=== PATIENT | female | born 1955 | race Caucasian/White ===

== ENCOUNTER → 2017-04-07 | Outpatient (CLI) | payer MEDICARE, MEDICAID ==
[~2017-04-07] MED LIST: ALBU2.5V52 INH; BUDE6HFA IH; DOXY100C2 PO; GABA-488 PO; HYDR-3857 PO; LVT.15T PO; NAPR-689 PO; PNT40TEC PO; PRED20TA PO; SERT100T8 PO; SIMV20TA3 PO; [UNRECOGNIZED DRUG - OTHER]
--- NOTE | 2017-04-07 15:17 | Diagnostic Imaging Report ---
PROCEDURE: CT chest without contrast. TECHNIQUE: Multiple contiguous axial images were obtained through the chest without the use of intravenous contrast. INDICATION: Dyspnea. Followup lung nodule. COPD. COMPARISON: 03/23/2016. FINDINGS: Cardiomediastinal structures show normal heart size. There is no large pericardial effusion. No pathologically enlarged or morphologically abnormal adenopathy is seen within the mediastinum, helga, nor axillae. Evaluation of the lung ramos demonstrates diffuse air trapping consistent with background of COPD. Multiple benign calcified granulomata are noted within the left upper lobe. No other suspicious nodules or masses are identified. There is no focal consolidation, pleural effusion, nor pneumothorax. Bony structures show no acute abnormalities. Included portions of the upper abdomen show bilateral nonobstructive renal calculi. IMPRESSION: 1. Multiple benign-appearing calcified micronodules within the left upper lobe consistent with granulomatous disease. 2. No suspicious pulmonary nodule or mass. 3. COPD. Dictated by: Dictated on workstation # [id number]
== END ==
LOC: RAD 14:30
PROVIDERS: ATTEND Nurse Practitioner Family
DX: J44.9 Chronic obstructive pulmonary disease, unspecified (principal); R91.8 Other nonspecific abnormal finding of lung field; R06.00 Dyspnea, unspecified; G47.34 Idiopathic sleep related nonobstructive alveolar hypoventilation; F17.200 Nicotine dependence, unspecified, uncomplicated
CPT/HCPCS: 71250

== ENCOUNTER 2017-06-15 11:01 | Emergency (ER) | payer MEDICARE, MEDICAID ==
[~2017-06-15] VITALS: Ht 157.5 cm; Wt 72.1 kg
--- OUTSIDE RECORDS SUMMARY | 2017-06-15 11:06 | XMS REPORT ---
Author Author RODRICK FLORES 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 Active 119075085 Problem Hypertension I10 Active 25103274 Problem Hyperlipidemia, mixed E78.2 Active 658860700 Problem SLE (systemic lupus erythematosus related syndrome) M32.9 Active 358372354 Problem PTSD (post-traumatic stress disorder) F43.10 Active 68558539 Problem Hyperlipemia, mixed E78.2 Active 515508920 Problem Chronic obstructive pulmonary disease, unspecified COPD type J44.9 Active 68851016 ALLERGIES Unknown Allergies SOCIAL HISTORY No smoking Hx information available PLAN OF CARE VITAL SIGNS MEDICATIONS Medication Instructions Dosage Frequency Start Date End Date Duration Status [place] 7.5-325 MG Orally 3 times a day 1 tablet 8h Nov, Active RESULTS No Results PROCEDURES No Known procedures IMMUNIZATIONS No Known Immunizations
--- OUTSIDE RECORDS SUMMARY | 2017-06-15 11:06 | XMS REPORT ---
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 845340620 Assessment Facial cellulitis L03.211 January, Active 028385924 Problem Hypertension I10 Active 53970891 Problem Hyperlipidemia, mixed E78.2 Active 891733670 Problem SLE (systemic lupus erythematosus related syndrome) M32.9 Active 679546078 Problem PTSD (post-traumatic stress disorder) F43.10 Active 77575878 Problem Hyperlipemia, mixed E78.2 Active 537003073 Problem Chronic obstructive pulmonary disease, unspecified COPD type J44.9 Active 34017843 ALLERGIES Substance Reaction Event Type Date Status Percocet Unknown Drug Allergy January, Active Keflex Unknown Drug Allergy January, Active Surgical Tape Unknown Non Drug Allergy January, Active SOCIAL HISTORY No smoking Hx information available PLAN OF CARE VITAL SIGNS Height 63 in 2016-02-17 Weight 153.0 lbs 2016-02-17 Heart Rate 88 bpm 2016-02-17 Respiratory Rate 20 2016-02-17 BMI 27.10 kg/m2 2016-02-17 Blood pressure systolic 129 mmHg 2016-02-17 Blood pressure diastolic 81 mmHg 2016-02-17 MEDICATIONS Medication Instructions Dosage Frequency Start Date End Date Duration Status Naproxen 500 MG 1 tab 12h Nov, 30 Active Zoloft 100 MG Orally Once a day 1 tablet 24h Active Bactrim DS 800-160 MG Orally Twice a day 1 tablet 12h January, Feb, 10 day(s) Active Hydroxychloroquine Sulfate 200 MG Orally Once a day 1 tablet 24h 30 Active Spiriva HandiHaler 18 MCG Inhalation Once a day 1 capsule 24h Mar, Active Vitamin D3 1000 UNIT Orally Once a day 1 capsule 24h Active Levothyroxine Sodium 150 MCG Orally Once a day 1 tablet 24h Active Pantoprazole Sodium 40 MG Orally Once a day 1 tablet 24h Active Gabapentin 300 MG Orally Three times a day 1 capsule 8h Active [place] 7.5-325 MG 1 tablet 8h Nov, Active Simvastatin 20 MG Orally Once a day 1 tablet in the evening 24h 30 Active Hospital Bed as directed May, Active Ipratropium-Albuterol 0.5-2.5 (3) MG/3ML Inhalation Four times a day 3 ml as needed 6h Active RESULTS Name Result Date Reference Range CULTURE, ANAEROBIC 2016-02-17 Anaerobic Culture Final report Result 1 CULTURE, AEROBIC 2016-02-17 Aerobic Bacterial Culture Final report Result 1 Antimicrobial Susceptibility Written Authorization 2016-02-17 Written Authorization PROCEDURES Procedure Date Ordered Related Diagnosis Body Site LAB NOT BILLED BY [facility] February 17, 2016 [facility] VISIT ESTABLISHED PATIENT February 17, 2016 Office Visit, Est Pt., Level 3 February 17, 2016 IMMUNIZATIONS No Known Immunizations
--- OUTSIDE RECORDS SUMMARY | 2017-06-15 11:06 | XMS REPORT ---
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
--- OUTSIDE RECORDS SUMMARY | 2017-06-15 11:06 | XMS REPORT ---
Author Author MARTA NI [facility] Address [address] [place] [address] Care Team Providers Care Skin Lifter Bacon Name Role Phone MARTA NI Unavailable PROBLEMS Type Condition ICD9-CM Code HND61-XA Code Onset Dates Condition Status SNOMED Code Problem Hypertension I10 Active 33147699 Problem Primary insomnia F51.01 Active 3874651 Problem Hyperlipidemia, mixed E78.2 Active 465854864 Problem Other emphysema J43.8 Active 72303315 Problem Polyneuropathy G62.9 Active 10730330 Problem Acquired hypothyroidism E03.9 Active 947732927 Problem Chronic fatigue R53.82 Active 83686663 Problem Unequal leg length M21.70 Active 80106175 Problem Neuropathy G62.9 Active 783028870 Problem SLE (systemic lupus erythematosus related syndrome) M32.9 Active 786985634 Problem Chronic obstructive pulmonary disease, unspecified COPD type J44.9 Active 63114463 Problem Hyperlipemia, mixed E78.2 Active 973503487 Problem 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 Active 788820321 Problem PTSD (post-traumatic stress disorder) F43.10 Active 94216555 ALLERGIES Substance Reaction Event Type Date Status Percocet Unknown Drug Allergy Sep, Active Keflex Unknown Drug Allergy Sep, Active Surgical Tape Unknown Non Drug Allergy Sep, Active SOCIAL HISTORY No smoking Hx information available PLAN OF CARE Activity Details Follow Up 1 Year [facility], PCP Shaggy at nml intervals Reason: VITAL SIGNS Height 63 in 2016-10-06 Weight 153.0 lbs 2016-10-06 Temperature 97.0 degrees Fahrenheit 2016-10-06 Heart Rate 18 bpm 2016-10-06 Respiratory Rate 20 2016-10-06 BMI 27.10 kg/m2 2016-10-06 Blood pressure systolic 120 mmHg 2016-10-06 Blood pressure diastolic 76 mmHg 2016-10-06 MEDICATIONS Medication Instructions Dosage Frequency Start Date End Date Duration Status Pantoprazole Sodium 40 MG Orally Once a day 1 tablet 24h 30 Active Hydroxychloroquine Sulfate 200 MG Orally Once a day 1 tablet 24h 30 Active Imitrex 100 MG Orally Once a day 1 tablet as needed 24h Apr, Active Ipratropium-Albuterol 0.5-2.5 (3) MG/3ML Inhalation Four times a day 3 ml as needed 6h Active Simvastatin 20 MG Orally Once a day 1 tablet in the evening 24h 30 Active Hospital Bed as directed May, Active Spiriva HandiHaler 18 MCG Inhalation Once a day 1 capsule 24h Mar, Active Zoloft 100 MG Orally Once a day 1 tablet 24h 30 Active Naproxen 500 MG 1 tab 12h Nov, 30 Active Gabapentin 300 MG Orally Three times a day 1 capsule 8h 30 Active [place] 7.5-325 MG Orally 3 times a day as needed 1 tablet Sep, 28 days Active Magnesium Oxide 400 MG Orally Once a day 1 tablet 24h Apr, Active Vitamin D3 1000 UNIT Orally Once a day 1 capsule 24h Active Levothyroxine Sodium 150 MCG Orally Once a day 1 tablet 24h 30 Active Ambien CR 12.5 MG Orally Once a day 1 tablet at bedtime as needed 24h Jun, Active RESULTS Name Result Date Reference Range CULTURE, GENITAL 2016-10-06 Genital Culture, Routine Final report Result 1 PROCEDURES Procedure Date Ordered Related Diagnosis Body Site LAB [facility] Oct 06, 2016 [facility] VISIT ESTABLISHED PATIENT Oct 06, 2016 Office Visit, Est Pt., Level 4 Oct 06, 2016 IMMUNIZATIONS No Known Immunizations
--- OUTSIDE RECORDS SUMMARY | 2017-06-15 11:06 | XMS REPORT ---
Author Author RODRICK FLORES [facility] Address [address] [place] [address] Care Team Providers Care Chain Repairer Name Role Phone RODRICK FLORES Unavailable PROBLEMS Type Condition ICD9-CM Code KSL18-BZ Code Onset Dates Condition Status SNOMED Code Problem Hypertension I10 Active 02929989 Problem Primary insomnia F51.01 Active 8382348 Problem Hyperlipidemia, mixed E78.2 Active 903919606 Problem Other emphysema J43.8 Active 68643292 Problem Polyneuropathy G62.9 Active 86601835 Problem Acquired hypothyroidism E03.9 Active 001018087 Problem Chronic fatigue R53.82 Active 51262838 Problem Unequal leg length M21.70 Active 35723983 Problem Neuropathy G62.9 Active 773226008 Problem SLE (systemic lupus erythematosus related syndrome) M32.9 Active 298520215 Problem Chronic obstructive pulmonary disease, unspecified COPD type J44.9 Active 46847605 Problem Hyperlipemia, mixed E78.2 Active 626727092 Problem 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
--- OUTSIDE RECORDS SUMMARY | 2017-06-15 11:06 | XMS REPORT ---
Author RODRICK Ruiz Organization [employer] Address Unknown Phone Unavailable Care Team Providers Care Miner Helper Name Role Phone RODRICK FLORES CP Unavailable Allergies No Known Allergies Problems Problem Type Condition Code Onset Dates Condition Status Problem Chronic airway obstruction, not elsewhere classified 496 Active Problem Systemic lupus erythematosus 710.0 Active Problem Blind right eye 369.60 Active Problem PTSD (post-traumatic stress disorder) 309.81 Active Problem Lung mass 786.6 Active Problem Unspecified hypothyroidism 244.9 Active Problem Other and unspecified hyperlipidemia 272.4 Active Problem Periodic limb movement disorder 327.51 Active Problem Other chronic pain 338.29 Active Medications No Known Medications Results No Known Results Summary Purpose [employer]ClinicalWorks Submission
--- OUTSIDE RECORDS SUMMARY | 2017-06-15 11:06 | XMS REPORT ---
Author Author RODRICK FLORES [facility] Address [address] [place] [address] Care Team Providers Care Green Meat Grader Name Role Phone RODRICK FLORES Unavailable PROBLEMS Type Condition ICD9-CM Code AJP12-CK Code Onset Dates Condition Status SNOMED Code Problem Hyperlipidemia, mixed E78.2 Active 054459598 Problem Primary insomnia F51.01 Active 9957123 Problem Hypertension I10 Active 95121554 Problem Polyneuropathy G62.9 Active 22853176 Problem Other emphysema J43.8 Active 20731622 Problem Chronic fatigue R53.82 Active 73529020 Problem Acquired hypothyroidism E03.9 Active 570407809 Problem Unequal leg length M21.70 Active 05616771 Problem Neuropathy G62.9 Active 500010693 Problem PTSD (post-traumatic stress disorder) F43.10 Active 44657651 Problem SLE (systemic lupus erythematosus related syndrome) M32.9 Active 692664719 Problem Chronic obstructive pulmonary disease, unspecified COPD type J44.9 Active 12916542 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
--- OUTSIDE RECORDS SUMMARY | 2017-06-15 11:07 | XMS REPORT ---
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
--- OUTSIDE RECORDS SUMMARY | 2017-06-15 11:07 | XMS REPORT ---
Author RODRICK Ruiz Organization [employer] Address Unknown Phone Unavailable Care Team Providers Care Appeals Assistant Name Role Phone RODRICK FLORES CP Unavailable [...] Instructions Start Date End Date Status Dosage [facility] [address]-17 7.5-325 MG 3 times a day. PT NEEDS APPT FOR FURTHER REFILLS December 18, 2014 1 tablet as needed Results No Known Results Summary Purpose eClinicalWorks Submission
--- OUTSIDE RECORDS SUMMARY | 2017-06-15 11:07 | XMS REPORT ---
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 Active 203437275 Assessment Degenerative disc disease, thoracic M51.34 May, Active 01084671 Assessment Insomnia, unspecified type G47.00 May, Active 438251557 Problem Hypertension I10 Active 84788959 Problem Hyperlipidemia, mixed E78.2 Active 075076731 Problem SLE (systemic lupus erythematosus related syndrome) M32.9 Active 696372842 Problem PTSD (post-traumatic stress disorder) F43.10 Active 83258936 Problem Hyperlipemia, mixed E78.2 Active 410564482 Problem Chronic obstructive pulmonary disease, unspecified COPD type J44.9 Active 29103329 ALLERGIES Substance Reaction Event Type Date Status Percocet Unknown Drug Allergy May, Active Keflex Unknown Drug Allergy May, Active Surgical Tape Unknown Non Drug Allergy May, Active SOCIAL HISTORY No smoking Hx information available PLAN OF CARE VITAL SIGNS Height 63 in 2016-06-11 Weight 151.8 lbs 2016-06-11 Heart Rate 96 bpm 2016-06-11 Respiratory Rate 20 2016-06-11 BMI 26.89 kg/m2 2016-06-11 Blood pressure systolic 117 mmHg 2016-06-11 Blood pressure diastolic 79 mmHg 2016-06-11 MEDICATIONS Medication Instructions Dosage Frequency Start Date End Date Duration Status Spiriva HandiHaler 18 MCG Inhalation Once a day 1 capsule 24h Mar, Active Hydroxychloroquine Sulfate 200 MG Orally Once a day 1 tablet 24h 30 Active Ipratropium-Albuterol 0.5-2.5 (3) MG/3ML Inhalation Four times a day 3 ml as needed 6h Active Vitamin D3 1000 UNIT Orally Once a day 1 capsule 24h Active Simvastatin 20 MG Orally Once a day 1 tablet in the evening 24h 30 Active Levothyroxine Sodium 150 MCG Orally Once a day 1 tablet 24h 30 Active [place] 7.5-325 MG Orally 3 times a day 1 tablet 8h Nov, Active Ambien 10 mg Orally Once a day 1 tablet at bedtime as needed 24h May, Active Magnesium Oxide 400 MG Orally Once a day 1 tablet 24h Apr, Active Pantoprazole Sodium 40 MG Orally Once a day 1 tablet 24h 30 Active Naproxen 500 MG 1 tab 12h Nov, 30 Active Imitrex 100 MG Orally Once a day 1 tablet as needed 24h Apr, Active Hospital Bed as directed May, Active Zoloft 100 MG Orally Once a day 1 tablet 24h 30 Active Gabapentin 300 MG Orally Three times a day 1 capsule 8h 30 Active RESULTS No Results PROCEDURES Procedure Date Ordered Related Diagnosis Body Site [facility] VISIT ESTABLISHED PATIENT Jun 11, 2016 Office Visit, Est Pt., Level 3 Jun 11, 2016 IMMUNIZATIONS No Known Immunizations
--- OUTSIDE RECORDS SUMMARY | 2017-06-15 11:07 | XMS REPORT ---
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
--- OUTSIDE RECORDS SUMMARY | 2017-06-15 11:07 | XMS REPORT ---
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
--- OUTSIDE RECORDS SUMMARY | 2017-06-15 11:07 | XMS REPORT ---
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 Active 326330731 Problem Chronic fatigue R53.82 Active 64701442 Problem Acquired hypothyroidism E03.9 Active 663991707 Problem Hyperlipidemia, mixed E78.2 Active 731710169 Problem Hyperlipemia, mixed E78.2 Active 261299263 Problem Primary insomnia F51.01 Active 9067648 Problem Hypertension I10 Active 06762227 ALLERGIES Unknown Allergies SOCIAL HISTORY No smoking Hx information available PLAN OF CARE VITAL SIGNS MEDICATIONS Medication Instructions Dosage Frequency Start Date End Date Duration Status [place] 7.5-325 MG Orally 3 times a day as needed 1 tablet Aug, Active RESULTS No Results PROCEDURES No Known procedures IMMUNIZATIONS No Known Immunizations
--- OUTSIDE RECORDS SUMMARY | 2017-06-15 11:07 | XMS REPORT ---
Author Author RODRICK FLORES [facility] e[employer] Address Unknown Phone Unavailable Care Team Providers Care Eligibility Services Representative Name Role Phone RODRICK FLORES CP Unavailable [...]
--- OUTSIDE RECORDS SUMMARY | 2017-06-15 11:07 | XMS REPORT ---
Author Author RODRIKC FLORES [facility] Address [address] [place] [address] Care Team Providers Care Cotton Broker Name Role Phone RODRICK FLORES Unavailable PROBLEMS Type Condition ICD9-CM Code OGH74-ZU Code Onset Dates Condition Status SNOMED Code Problem Hypertension I10 Active 86132224 Problem Primary insomnia F51.01 Active 7931745 Problem Hyperlipidemia, mixed E78.2 Active 313855046 Problem Other emphysema J43.8 Active 18308024 Problem Polyneuropathy G62.9 Active 45705296 Problem Acquired hypothyroidism E03.9 Active 112239189 Problem Chronic fatigue R53.82 Active 15804293 Problem Unequal leg length M21.70 Active 34694791 Problem Neuropathy G62.9 Active 366388569 Problem SLE (systemic lupus erythematosus related syndrome) M32.9 Active 112293970 Problem Chronic obstructive pulmonary disease, unspecified COPD type J44.9 Active 62757338 Problem Hyperlipemia, mixed E78.2 Active 044075356 Problem 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
--- OUTSIDE RECORDS SUMMARY | 2017-06-15 11:07 | XMS REPORT ---
Author Author RODRICK FLORES Organization [employer] Address Unknown Phone Unavailable Care Team Providers Care Utilization Specialist Name Role Phone RODRICK FLORES CP Unavailable [...]
--- OUTSIDE RECORDS SUMMARY | 2017-06-15 11:07 | XMS REPORT ---
Author Author RODRICK FLORES [facility] Address [address] [place] [address] Care Team Providers Care Route Delivery Manager Name Role Phone RODRICK FLORES Unavailable PROBLEMS Type Condition ICD9-CM Code QSW17-LV Code Onset Dates Condition Status SNOMED Code Problem Hypertension I10 Active 15734370 Problem Primary insomnia F51.01 Active 1826906 Problem Hyperlipidemia, mixed E78.2 Active 476897693 Problem Other emphysema J43.8 Active 88700086 Problem Polyneuropathy G62.9 Active 16509703 Problem Acquired hypothyroidism E03.9 Active 144469814 Problem Chronic fatigue R53.82 Active 73719212 Problem Unequal leg length M21.70 Active 73025422 Problem Neuropathy G62.9 Active 843939850 Problem SLE (systemic lupus erythematosus related syndrome) M32.9 Active 095643511 Problem Chronic obstructive pulmonary disease, unspecified COPD type J44.9 Active 43806629 Problem Hyperlipemia, mixed E78.2 Active 890429804 Problem 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
--- OUTSIDE RECORDS SUMMARY | 2017-06-15 11:07 | XMS REPORT ---
Author Author RODRICK FLORES [facility] eClinicalWorks Address Unknown Phone Unavailable Care Team Providers Care Maintainer Plant Name Role Phone RODRICK FLORES CP Unavailable Allergies, Adverse Reactions, Alerts Substance Reaction Event Type Percocet Info Not Available Drug Allergy Keflex Info Not Available Drug Allergy Surgical Tape Info Not Available Non Drug Allergy Problems Problem Type Condition Code Onset Dates Condition Status Assessment Onychomycosis B35.1 Active Assessment Nail ingrowing L60.0 Active Problem Hyperlipidemia, mixed E78.2 Active Problem Hyperlipemia, mixed E78.2 Active Problem Hypertension I10 Active Problem PTSD (post-traumatic stress disorder) F43.10 Active Problem 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 Active Problem Chronic obstructive pulmonary disease, unspecified COPD type J44.9 Active Problem SLE (systemic lupus erythematosus related syndrome) M32.9 Active Medications Medication Code System Code Instructions Start Date End Date Status Dosage Levothyroxine Sodium [facility] [address]-78 150 MCG Orally Once a day 1 [address]ap[address] [facility] [address]-11 300 MG Orally Three times a day 1 capsule Hospital Bed [facility] 0 Jun 19, 2015 as directed Zoloft [facility] [address]-47 100 MG Orally Once a day 1 tablet Pantoprazole Sodium [facility] [address]-46 40 MG Orally Once a day 1 tablet Hydroxychloroquine Sulfate [facility] [address]-49 200 MG Orally Once a day 1 tablet Ipratropium-Albuterol [facility] [address]-48 0.5-2.5 (3) MG/3ML Inhalation Four times a day 3 ml as needed Vitamin D3 [facility] [address] 1000 UNIT Orally Once a day 1 capsule Spiriva HandiHaler [facility] [address]-08 18 MCG Inhalation Once a day April 10, 2015 1 capsule Simvastatin [facility] [address]-66 20 MG Orally Once a day 1 tablet in the evening [place] [facility] [address]-25 7.5-325 MG 3 times a day December 18, 2014 1 tablet [address]rox[address] [facility] [address]-30 500 MG 2 times a day December 18, 2014 1 tab Procedures Procedure Coding System Code Date REMOVAL OF NAIL PLATE CPT-4 47277 January 28, 2016 Vital Signs Date/Time: January 28, 2016 Temperature 98.1 F Weight 152.1 lbs Height 63 in BMI 26.94 Index Blood Pressure Diastolic 88 mmHg Blood Pressure Systolic 130 mmHg Cardiac Monitoring Heart Rate 78 bpm Results Name Result Date Reference Range Unit Abnormality Flag NAIL REMOVAL SINGLE (COMPLETE OR PARTIAL) Summary Purpose eClinicalWorks Submission
--- OUTSIDE RECORDS SUMMARY | 2017-06-15 11:07 | XMS REPORT ---
Author Author RODRICK FLORES [facility] eClinicalWorks Address Unknown Phone Unavailable Care Team Providers Care Orthopedic Rn Name Role Phone RODRICK FLORES CP Unavailable Allergies, Adverse Reactions, Alerts Substance Reaction Event Type Percocet Info Not Available Drug Allergy Keflex Info Not Available Drug Allergy Surgical Tape Info Not Available Non Drug Allergy Problems Problem Type Condition Code Onset Dates Condition Status Assessment Cramping of feet R25.2 Active Assessment Chronic cluster headache, not intractable G44.029 Active Problem Hyperlipidemia, mixed E78.2 Active Problem Hyperlipemia, mixed E78.2 Active Problem Hypertension I10 Active Problem PTSD (post-traumatic stress disorder) F43.10 Active Problem 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 Active Problem Chronic obstructive pulmonary disease, unspecified COPD type J44.9 Active Problem SLE (systemic lupus erythematosus related syndrome) M32.9 Active Medications Medication Code System Code Instructions Start Date End Date Status Dosage Simvastatin [facility] [address]-07 20 MG Orally Once a day 1 tablet in the evening [place] [facility] [address]-16 7.5-325 MG 3 times a day December 18, 2014 1 tablet Vitamin D3 [facility] [address] 1000 UNIT Orally Once a day 1 capsule Pantoprazole Sodium [facility] [address]-43 40 MG Orally Once a day 1 tablet Ipratropium-Albuterol [facility] [address]-09 0.5-2.5 (3) MG/3ML Inhalation Four times a day 3 ml as needed Magnesium Oxide [facility] [address]-41 400 MG Orally Once a day May 01, 2016 as directed Hospital Bed [facility] 0 Jun 19, 2015 as directed Spiriva HandiHaler [facility] [address]-78 18 MCG Inhalation Once a day April 10, 2015 1 capsule Hydroxychloroquine Sulfate [facility] [address]-96 200 MG Orally Once a day 1 tablet Naproxen [facility] [address]-44 500 MG 2 times a day December 18, 2014 1 tab Zoloft [facility] [address]-13 100 MG Orally Once a day 1 tablet Levothyroxine Sodium [facility] [address]-47 150 MCG Orally Once a day 1 tablet Imitrex [facility] [address]-73 100 MG Orally Once a day May 01, 2016 1 tablet as needed Gabapentin [facility] [address]-41 300 MG Orally Three times a day 1 capsule Procedures Procedure Coding System Code Date Office Visit, Est Pt., Level 3 CPT-4 12619 May 01, 2016 [facility] VISIT ESTABLISHED PATIENT CPT-4 G0467 May 01, 2016 Vital Signs Date/Time: May 01, 2016 Cardiac Monitoring Heart Rate 80 bpm Weight 157 lbs Height 63 in BMI 27.81 Index Blood Pressure Diastolic 78 mmHg Blood Pressure Systolic 132 mmHg Results No Known Results Summary Purpose eClinicalWorks Submission
--- OUTSIDE RECORDS SUMMARY | 2017-06-15 11:08 | XMS REPORT ---
Author Author RODRICK FLORES Organization eClinicalWorks Address Unknown Phone Unavailable Care Team Providers Care Refrigeration Manager Name Role Phone RODRICK FLORES CP Unavailable [...] Start Date End Date Status Dosage [facility] [address]-59 7.5-325 MG 3 times a day December 18, 2014 1 tablet Results No Known Results Summary Purpose eClinicalWorks Submission
--- OUTSIDE RECORDS SUMMARY | 2017-06-15 11:08 | XMS REPORT ---
Author Author RODRICK FLORES Organization eClinicalWorks Address Unknown Phone Unavailable Care Team Providers Care Junior High Math Teacher Name Role Phone RODRICK FLORES CP Unavailable Allergies No Known Allergies Problems Problem Type Condition Code Onset Dates Condition Status Assessment Chronic airway obstruction, not elsewhere classified 496 Active Problem Chronic airway obstruction, not elsewhere classified 496 Active Problem Systemic lupus erythematosus 710.0 Active Problem Blind right eye 369.60 Active Problem PTSD (post-traumatic stress disorder) 309.81 Active Problem Lung mass 786.6 Active Problem Unspecified hypothyroidism 244.9 Active Problem Other and unspecified hyperlipidemia 272.4 Active Problem Periodic limb movement disorder 327.51 Active Problem Other chronic pain 338.29 Active Medications Medication Code System Code Instructions Start Date End Date Status Dosage [facility] [address]-55 7.5-325 MG 3 times a day. Beba to sign in Everardo' s absence December 18, 2014 1 tablet as needed Results No Known Results Summary Purpose eClinicalWorks Submission
--- OUTSIDE RECORDS SUMMARY | 2017-06-15 11:08 | XMS REPORT ---
Author RODRICK Ruiz [facility] eClinicalWorks Address Unknown Phone Unavailable Care Team Providers Care Truck Mechanic Apprentice Name Role Phone RODRICK FLORES CP Unavailable [...] I10 Active Problem Hyperlipidemia, mixed E78.2 Active Assessment Encounter for immunization Z23 Active Assessment Primary insomnia F51.01 Active Assessment Acquired hypothyroidism E03.9 Active Assessment Chronic fatigue R53.82 Active Medications Medication Code System Code Instructions Start Date End Date Status Dosage Vitamin D3 [facility] [address] 1000 UNIT Orally Once a day 1 capsule Magnesium Oxide [facility] [address]-98 400 MG Orally Once a day May 01, 2016 1 tablet Rheems [facility] [address]-11 7.5-325 MG Orally 3 times a day December 18, 2014 1 tablet Hydroxychloroquine Sulfate [facility] [address]-10 200 MG Orally Once a day 1 tablet Levothyroxine Sodium [facility] [address]-42 150 MCG Orally Once a day 1 tablet Gabapentin [facility] [address]-43 300 MG Orally Three times a day 1 capsule Naproxen [facility] [address]-87 500 MG 2 times a day December 18, 2014 1 tab Zoloft [facility] [address]-35 100 MG Orally Once a day 1 tablet Pantoprazole Sodium [facility] [address]-05 40 MG Orally Once a day 1 tablet Hospital Bed [facility] 0 Jun 19, 2015 as directed Spiriva HandiHaler [facility] [address]-87 18 MCG Inhalation Once a day April 10, 2015 1 capsule Simvastatin [facility] [address]-47 20 MG Orally Once a day 1 tablet in the evening Ipratropium-Albuterol [facility] [address]-76 0.5-2.5 (3) MG/3ML Inhalation Four times a day 3 ml as needed Imitrex [facility] [address]-51 100 MG Orally Once a day May 01, 2016 1 tablet as needed Ambien CR [facility] [address]-63 12.5 MG Orally Once a day Jul 27, 2016 1 tablet at bedtime as needed Procedures Procedure Coding System Code Date Office Visit, Est Pt., Level 3 CPT-4 56702 Jul 27, 2016 [facility] CPT-4 NOBLL Jul 27, 2016 [facility] VISIT ESTABLISHED PATIENT CPT-4 G0467 Jul 27, 2016 FLUARIX QUAD P-FREE 3 AND UP .50 2015 CPT-4 96377 Jul 27, 2016 VENIPUNCT, ROUTINE* CPT-4 57384 Jul 27, 2016 SINGLE IMMUNIZATION ADMIN CPT-4 96837 Jul 27, 2016 Vital Signs Date/Time: Jul 27, 2016 Cardiac Monitoring Heart Rate 92 bpm Weight 151.4 lbs Height 63 in BMI 26.82 Index Blood Pressure Diastolic 74 mmHg Blood Pressure Systolic 114 mmHg Results Name Result Date Reference Range Unit Abnormality Flag ROUTINE VENIPUNCTURE TSH ----TSH 1.950 [id number] 0.450-4.500 uIU/mL Immunizations Vaccine Administration Date FLUARIX QUAD P-FREE 3 AND UP .50 2015Jul 27, 2016 Summary Purpose eClinicalWorks Submission
--- OUTSIDE RECORDS SUMMARY | 2017-06-15 11:08 | XMS REPORT ---
Author Author PETEY STORY [facility] eClinicalWorks Address Unknown Phone Unavailable Care Team Providers Care Carbide Powder Processor Name Role Phone PETEY STORY Unavailable Allergies No Known Allergies Problems Problem [...] Instructions Start Date End Date Status Dosage Ambien [facility] [address]-37 10 mg Orally Once a day Jun 11, 2016 1 tablet at bedtime as needed [place] [facility] [address]-58 7.5-325 MG Orally 3 times a day December 18, 2014 1 tablet Results No Known Results Summary Purpose eClinicalWorks Submission
--- OUTSIDE RECORDS SUMMARY | 2017-06-15 11:08 | XMS REPORT ---
Author Author RODRICK FLORES [facility] Address [address] [place] [address] Care Team Providers Care Crime Lab Analyst Name Role Phone RODRICK FLORES Unavailable PROBLEMS Type Condition ICD9-CM Code [id number] Code Onset Dates Condition Status SNOMED Code Problem Hyperlipidemia, mixed E78.2 Active 116439508 Problem Primary insomnia F51.01 Active 9872816 Problem Hypertension I10 Active 62863197 Problem Polyneuropathy G62.9 Active 36094303 Problem Other emphysema J43.8 Active 08479054 Problem Chronic fatigue R53.82 Active 23559703 Problem Acquired hypothyroidism E03.9 Active 763904404 Problem Unequal leg length M21.70 Active 36574851 Problem Neuropathy G62.9 Active 765039860 Problem PTSD (post-traumatic stress disorder) F43.10 Active 22753673 Problem SLE (systemic lupus erythematosus related syndrome) M32.9 Active 480064783 Problem Chronic obstructive pulmonary disease, unspecified COPD type J44.9 Active 29932790 Problem 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 Active 874250746 Problem Hyperlipemia, mixed E78.2 Active 934735534 ALLERGIES Substance Reaction Event Type Date Status Percocet Unknown Drug Allergy Aug, Active Keflex Unknown Drug Allergy Aug, Active Surgical Tape Unknown Non Drug Allergy Aug, Active SOCIAL HISTORY No smoking Hx information available PLAN OF CARE VITAL SIGNS Height 63 in 2016-09-18 Weight 154 lbs 2016-09-18 Temperature 98.1 degrees Fahrenheit 2016-09-18 Heart Rate 21 bpm 2016-09-18 Respiratory Rate 22 2016-09-18 BMI 27.28 kg/m2 2016-09-18 Blood pressure systolic 110 mmHg 2016-09-18 Blood pressure diastolic 80 mmHg 2016-09-18 MEDICATIONS Medication Instructions Dosage Frequency Start Date End Date Duration Status Ambien CR 12.5 MG Orally Once a day 1 tablet at bedtime as needed 24h Jun, Active Spiriva HandiHaler 18 MCG Inhalation Once a day 1 capsule 24h 15 Mar, 2015 Active Levothyroxine Sodium 150 MCG Orally Once a day 1 tablet 24h 30 Active [place] 7.5-325 MG Orally 3 times a day as needed 1 tablet Aug, Active Magnesium Oxide 400 MG Orally Once a day 1 tablet 24h Apr, Active Gabapentin 300 MG Orally Three times a day 1 capsule 8h 30 Active Hydroxychloroquine Sulfate 200 MG Orally Once a day 1 tablet 24h 30 Active Imitrex 100 MG Orally Once a day 1 tablet as needed 24h Apr, Active Ipratropium-Albuterol 0.5-2.5 (3) MG/3ML Inhalation Four times a day 3 ml as needed 6h Active Vitamin D3 1000 UNIT Orally Once a day 1 capsule 24h Active Pantoprazole Sodium 40 MG Orally Once a day 1 tablet 24h 30 Active Hospital Bed as directed May, Active Naproxen 500 MG 1 tab 12h Nov, 30 Active Simvastatin 20 MG Orally Once a day 1 tablet in the evening 24h 30 Active Zoloft 100 MG Orally Once a day 1 tablet 24h 30 Active RESULTS Name Result Date Reference Range Xray : Foot, Left 3 views (IN HOUSE) 2016-09-18 PROCEDURES Procedure Date Ordered Related Diagnosis Body Site X-RAY EXAM OF FOOT Sep 18, 2016 [facility] VISIT ESTABLISHED PATIENT Sep 18, 2016 Office Visit, Est Pt., Level 3 Sep 18, 2016 IMMUNIZATIONS No Known Immunizations
--- OUTSIDE RECORDS SUMMARY | 2017-06-15 11:08 | XMS REPORT ---
Author Author RODRICK FLORES [facility] Address [address] [place] [address] Care Team Providers Care Spring Upholsterer Name Role Phone RODRICK FLORES Unavailable PROBLEMS Type Condition ICD9-CM Code [id number] Code Onset Dates Condition Status SNOMED Code Problem Hypertension I10 Active 04921215 Problem Primary insomnia F51.01 Active 4211386 Problem Hyperlipidemia, mixed E78.2 Active 744525774 Problem Other emphysema J43.8 Active 32710993 Problem Polyneuropathy G62.9 Active 50824810 Problem Acquired hypothyroidism E03.9 Active 705858665 Problem Chronic fatigue R53.82 Active 54525842 Problem Unequal leg length M21.70 Active 12293886 Problem Neuropathy G62.9 Active 686054834 Problem SLE (systemic lupus erythematosus related syndrome) M32.9 Active 798867503 Problem Chronic obstructive pulmonary disease, unspecified COPD type J44.9 Active 74959746 Problem Hyperlipemia, mixed E78.2 Active 666451757 Problem 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
--- OUTSIDE RECORDS SUMMARY | 2017-06-15 11:08 | XMS REPORT ---
Author Author RODRICK FLORES [facility] eClinicalWorks Address Unknown Phone Unavailable Care Team Providers Care Occupational Therapy Director Name Role Phone RODRICK FLORES CP Unavailable [...]
--- OUTSIDE RECORDS SUMMARY | 2017-06-15 11:08 | XMS REPORT ---
Author Author RODRICK FLORES Organization eClinicalWorks Address Unknown Phone Unavailable Care Team Providers Care Mineral Economist Name Role Phone RODRICK FLORES CP Unavailable [...] Date End Date Status Dosage Magnesium Oxide [facility] [address]-90 400 MG Orally Once a day May 01, 2016 1 tablet Results No Known Results Summary Purpose eClinicalWorks Submission
--- OUTSIDE RECORDS SUMMARY | 2017-06-15 11:08 | XMS REPORT ---
Author Author RODRICK FLORES [facility] eClinicalWorks Address Unknown Phone Unavailable Care Team Providers Care Piercing Machine Operator Name Role Phone RODRICK FLORES CP Unavailable Allergies, Adverse Reactions, Alerts Substance Reaction Event Type Percocet Info Not Available Drug Allergy Keflex Info Not Available Drug Allergy Problems Problem Type Condition Code Onset Dates Condition Status Assessment Onychomycosis B35.1 Active Assessment Nail, ingrown L60.0 Active Problem Hyperlipidemia, mixed E78.2 Active Problem Hyperlipemia, mixed E78.2 Active Problem Hypertension I10 Active Problem PTSD (post-traumatic stress disorder) F43.10 Active Problem 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 Active Problem Chronic obstructive pulmonary disease, unspecified COPD type J44.9 Active Problem SLE (systemic lupus erythematosus related syndrome) M32.9 Active Medications Medication Code System Code Instructions Start Date End Date Status Dosage Ipratropium-Albuterol [facility] [address]-72 0.5-2.5 (3) MG/3ML Inhalation Four times a day 3 ml as needed Gabapentin [facility] [address]-69 300 MG Orally Three times a day 1 capsule Naproxen [facility] [address]-14 500 MG 2 times a day December 18, 2014 1 tab Spiriva HandiHaler [facility] [address]-37 18 MCG Inhalation Once a day April 10, 2015 1 capsule Zoloft [facility] [address]-59 100 MG Orally Once a day 1 tablet Simvastatin [facility] [address]-76 20 MG Orally Once a day 1 tablet in the evening Pantoprazole Sodium [facility] [address]-16 40 MG Orally Once a day 1 tablet Levothyroxine Sodium [facility] [address]-31 150 MCG Orally Once a day 1 tablet Hydroxychloroquine Sulfate [facility] [address]-98 200 MG Orally Once a day 1 tablet Vitamin D3 [facility] [address] 1000 UNIT Orally Once a day 1 capsule Hospital Bed [facility] 0 Jun 19, 2015 as directed [place] [facility] [address]-31 7.5-325 MG 3 times a day December 18, 2014 1 tablet Procedures Procedure Coding System Code Date REMOVAL OF NAIL BED CPT-4 59649 January 14, 2016 Vital Signs Date/Time: January 14, 2016 Temperature 98.2 F Weight 156.6 lbs Height 63 in BMI 27.74 Index Blood Pressure Diastolic 88 mmHg Blood Pressure Systolic 120 mmHg Cardiac Monitoring Heart Rate 80 bpm Results Name Result Date Reference Range Unit Abnormality Flag NAIL REMOVAL PERMANENT (PARTIAL OR COMPLETE) Summary Purpose eClinicalWorks Submission
--- OUTSIDE RECORDS SUMMARY | 2017-06-15 11:08 | XMS REPORT ---
Author RODRICK Ruiz Organization eClinicalWorks Address Unknown Phone Unavailable Care Team Providers Care Sandstone Inspector Repairer Name Role Phone RODRICK FLORES CP Unavailable Allergies No Known Allergies Problems Problem Type Condition ICD-9 Code Onset Dates Condition Status Assessment Chronic [...] Instructions Start Date End Date Status Dosage [facility] [address]-97 7.5-325 MG 3 times a day December 18, 2014 1 tablet as needed Results No Known Results Summary Purpose eClinicalWorks Submission
[2017-06-15] MEDS ORDERED: KETOROLAC 30 MG/ML VIAL IVP ONE (11:15)
[2017-06-15] MEDS ORDERED: HYDR-3820 (11:15)
--- NOTE | 2017-06-15 11:17 | ED General ---
General Chief Complaint: General Problems/Pain Stated Complaint: RT SIDE BACK PAIN Nursing Triage Note: Patient reports R flank pain for years, patient reports it has been much worse the past 3 days. patient reports pain isn't improved with her normal pain medication Nursing Sepsis Screen: No Definite Risk Source of Information: Patient Exam Limitations: No Limitations History of Present Illness Time Seen by Provider: 11:16 Initial Comments To ER with right upper flank pain for the past 3 days. She states she has difficulties getting comfortable at night. Pain is worse with deep breathing. No fevers chills or cough. Timing/Duration: 2-3 Days Severity: Moderate Allergies and Home Medications Allergies Coded Allergies: cephalexin (Unverified Allergy, Unknown, 11/15/14) oxycodone (Unverified Allergy, Unknown, 11/15/14) propoxyphene (Unverified Allergy, Unknown, 11/15/14) Uncoded Allergies: TAPE (Allergy, Unknown, 11/15/14) Home Medications Albuterol Sulfate 2.5 Mg/3 Ml Nebu, 2.5 MG INH Q4H PRN for SHORTNESS OF BREATH, #25 Ref 0 Prescribed by: PALLAVI MCQUEEN on 11/15/14 8344 Budesonide/Formoterol Fumarate 1 Inhaler Aero, 1 PUFF IH BID, (Reported) Gabapentin 300 Mg Capsule, 300 MG PO TID, (Reported) Hydrocodone/Acetaminophen 1 Each Tablet, (Reported) Levothyroxine Sodium 150 Mcg Tablet, 150 MCG PO DAILY, (Reported) Naproxen 500 Mg Tablet, 500 MG PO, (Reported) Pantoprazole Sod 40 Mg Tab, 40 MG PO, (Reported) Sertraline Hcl 100 Mg Tablet, 100 MG PO HS, (Reported) Simvastatin 20 Mg Tablet, 20 MG PO DAILY, (Reported) [Hydroxychl] , 200 MG DAILY, (Reported) Constitutional: see HPI EENTM: see HPI Respiratory: no symptoms reported Cardiovascular: no symptoms reported Genitourinary: no symptoms reported Musculoskeletal: no symptoms reported Skin: no symptoms reported Psychiatric/Neurological: No Symptoms Reported Hematologic/Lymphatic: No Symptoms Reported Past Dvyblnx-Madsxt-Cvemef Hx Patient Social History Alcohol Use: Denies Use Recreational Drug Use: No Smoking Status: Current Everyday Smoker Type Used: Cigarettes Recent Foreign Travel: No Contact w/Someone Who Travel: No Recent Infectious Disease Expo: No Physical Abuse: No Sexual Abuse: No Immunizations Up To Date Tetanus Booster (TDap): Less than 5yrs Date of Pneumonia Vaccine: Jun 30, 2014 Date of Influenza Vaccine: Jun 30, 2014 Seasonal Allergies Seasonal Allergies: No Surgeries History of Surgeries: Yes (FACE, LOWER LEFT AND UPPER RIGHT LEGS, BACK) Surgeries: Gallbladder, Hysterectomy, Orthopedic, Tubal Ligation Respiratory History of Respiratory Disorde: Yes (HOME O2 AT NIGHT) Respiratory Disorders: COPD, Emphysema Cardiovascular History of Cardiac Disorders: Yes (ENLARGED HEART) Cardiac Disorders: Cardiomyopathy Neurological History of Neurological Disord: No Reproductive System Hx Reproductive Disorders: No Gastrointestinal History of Gastrointestinal Di: No Musculoskeletal History of Musculoskeletal Dis: Yes Musculoskeletal Disorders: Arthritis Endocrine History of Endocrine Disorders: Yes Endocrine Disorders: Hypothyroidsim, Lupus HEENT HEENT Disorders: Tinnitis Loss of Vision: Right Hearing Impairment: Denies Cancer History of Cancer: No Psychosocial History of Psychiatric Problem: Yes Behavioral Health Disorders: Depression Suicide Risk Score: 0 Integumentary History of Skin or Integumenta: No Blood Transfusions History of Blood Disorders: No Adverse Reaction to a Blood Tr: No Family Medical History Family Medial History: Completed stroke G8 BROTHER Diabetes mellitus 19 MOTHER G8 BROTHER G8 SISTER FH: congestive heart failure 19 MOTHER FH: liver cancer G8 SISTER FH: multiple myeloma 19 FATHER Hypertension 19 FATHER Osteoporosis 19 MOTHER Physical Exam Vital Signs Vital Sign - Last 12Hours 06/15/17 11:10 Temp 98.7 Pulse 78 Resp 20 B/P (MAP) 132/78 Pulse Ox 97 Capillary Refill : Less Than 3 Seconds General Appearance: No Apparent Distress, WD/WN Eyes: Bilateral Eye Normal Inspection, Bilateral Eye PERRL, Bilateral Eye EOMI HEENT: PERRL/EOMI, TMs Normal Neck: Full Range of Motion, Normal Inspection Respiratory: Normal Breath Sounds, No Accessory Muscle Use, No Respiratory Distress Cardiovascular: Regular Rate, Rhythm, Normal Peripheral Pulses Gastrointestinal: Normal Bowel Sounds, Non Tender, Soft Extremity: Normal Capillary Refill, No Calf Tenderness Neurologic/Psychiatric: Alert, Oriented x3, No Motor/Sensory Deficits Skin: Normal Color, Warm/Dry Progress/Results/Core Measures Results/Orders Lab Results Laboratory Tests Test 06/15/17 11:15 Range/Units White Blood Count 8.4 4.3-11.0 10^3/uL Red Blood Count 4.20 L 4.35-5.85 10^6/uL Hemoglobin 12.6 11.5-16.0 G/DL Hematocrit 38 35-52 % Mean Corpuscular Volume 91 80-99 FL Mean Corpuscular Hemoglobin 30 25-34 PG Mean Corpuscular Hemoglobin Concent 33 32-36 G/DL Red Cell Distribution Width 14.7 H 10.0-14.5 % Platelet Count 258 130-400 10^3/uL Mean Platelet Volume 10.6 H 7.4-10.4 FL Neutrophils (%) (Auto) 65 42-75 % Lymphocytes (%) (Auto) 19 12-44 % Monocytes (%) (Auto) 12 0-12 % Eosinophils (%) (Auto) 3 0-10 % Basophils (%) (Auto) 1 0-10 % Neutrophils # (Auto) 5.5 1.8-7.8 X 10^3 Lymphocytes # (Auto) 1.6 1.0-4.0 X 10^3 Monocytes # (Auto) 1.0 0.0-1.0 X 10^3 Eosinophils # (Auto) 0.3 0.0-0.3 10^3/uL Basophils # (Auto) 0.1 0.0-0.1 10^3/uL Sodium Level 143 135-145 MMOL/L Potassium Level 4.0 3.6-5.0 MMOL/L Chloride Level 109 H 98-107 MMOL/L Carbon Dioxide Level 24 21-32 MMOL/L Anion Gap 10 5-14 MMOL/L Blood Urea Nitrogen 17 7-18 MG/DL Creatinine 0.87 0.60-1.30 MG/DL Estimat Glomerular Filtration Rate > 60 BUN/Creatinine Ratio 20 Glucose Level 101 70-105 MG/DL Calcium Level 8.8 8.5-10.1 MG/DL My Orders Orders - RODRI GEORGES APRN Cbc With Automated Diff (06/15/17 11:15) Basic Metabolic Panel (06/15/17 11:15) Ct Chest/Abdomen W (06/15/17 11:15) Ketorolac Injection (Toradol Injection) (06/15/17 11:15) Iohexol Injection (Omnipaque 350 Mg/Ml 1 (06/15/17 12:45) Ns (Ivpb) (Sodium Chloride 0.9% Ivpb Bag (06/15/17 12:45) Medications Given in ED Current Medications Medications Dose Ordered Sig/Jean Paul Route Start Time Stop Time Status Last Admin Dose Admin Iohexol 100 ml ONCE ONCE IV 06/15/17 12:45 06/15/17 12:51 DC 06/15/17 12:45 100 ML Ketorolac Tromethamine 30 mg ONCE ONCE IVP 06/15/17 11:15 06/15/17 11:16 DC 06/15/17 11:21 30 MG Sodium Chloride 50 ml ONCE ONCE IV 06/15/17 12:45 06/15/17 12:51 DC 06/15/17 12:45 80 ML Vital Signs/I&O Vital Sign - Last 12Hours 06/15/17 11:10 Temp 98.7 Pulse 78 Resp 20 B/P (MAP) 132/78 Pulse Ox 97 Blood Pressure Mean: 96 Departure Communication (Admissions) Progress Notes NAME: DICKSON HOGAN [facility] REC#: [id number] PT STATUS: REG ER : 1955 PHYSICIAN: RODRI GEORGES POLITICAL CARTOONIST ADMIT DATE: 06/15/17/ER Draft Date of Exam:06/15/17 CT CHEST/ABDOMEN W PROCEDURE: CT chest and abdomen with contrast. TECHNIQUE: Multiple contiguous axial images were obtained through the chest and abdomen after the administration of intravenous contrast. INDICATION: Difficulty breathing, history of lung surgery. COMPARISON: The chest CT is compared to 04/07/2017. There is no previous abdominal imaging. FINDINGS: CHEST: Old presumed post thoracotomy changes to the left osseous chest wall posteriorly are chronic. Some curvilinear calcifications and/or sutural opacity in the left upper lobe are chronic. No noncalcified dominant or suspicious chest nodule. There is no thoracic effusion. There is no hilar, mediastinal, or axillary lymphadenopathy. The central pulmonary arterial branches are opacified and patent. The aorta is patent and nonaneurysmal. There is no effusion or pneumothorax. ABDOMEN: The kidneys show nonobstructing calculi bilaterally. The gallbladder is surgically absent. The liver, spleen, adrenals, and pancreas are negative. There is no ascites. The abdominal small and large bowel loops visualized are nondilated. No ascites or free air. IMPRESSION: CHEST: Stable chronic findings in the left upper lobe and chest wall. No infiltrate, dominant mass, adenopathy, effusion, pneumothorax, or acute finding. ABDOMEN: Nonobstructing renal calculi. No acute abnormality is identified. Dictated on workstation # [id number] Dict: 06/15/17 1301 Trans: 06/15/17 1330 [id number] Interpreted by: MARY BEGUM Electronically signed by: Impression Impression: Primary Impression: Right-sided chest wall pain Disposition: 01 HOME, SELF-CARE Condition: Stable Departure-Patient Inst. Decision time for Depature: 12:56 Referrals: [facility] (PCP) Primary Care Physician RODRICK FLORES (Family) Primary Care Physician Patient Instructions: NO INSTRUCTIONS GIVEN Add. Discharge Instructions: All discharge instructions reviewed with patient and/or family. Voiced understanding. Scripts Cyclobenzaprine HCl (Cyclobenzaprine HCl) 5 Mg Tablet 5 MG PO TID Y for PAIN-MODERATE TO SEVERE, #15 TAB Prov: RODRI GEORGES APRN 06/15/17 RODRI GEORGES APRN Jun 15, 2017 11:17
[2017-06-15 11:28] LABS: BASOPHILS # (AUTO) 0.1 10^3/uL (0.0-0.1); BASOPHILS % (AUTO) 1 % (0-10); EOSINOPHILS # (AUTO) 0.3 10^3/uL (0.0-0.3); EOSINOPHILS % (AUTO) 3 % (0-10); LYMPHOCYTES # (AUTO) 1.6 X 10^3 (1.0-4.0); LYMPHOCYTES % (AUTO) 19 % (12-44); MEAN CORPUSCULAR HEMOGLOBIN 30 PG (25-34); MEAN CORPUSCULAR HGB CONC 33 G/DL (32-36); MEAN CORPUSCULAR VOLUME 91 FL (80-99); MEAN PLATELET VOLUME 10.6 FL (7.4-10.4); MONOCYTES % (AUTO) 12 % (0-12); NEUTROPHILS # (AUTO) 5.5 X 10^3 (1.8-7.8); NEUTROPHILS % (AUTO) 65 % (42-75); PLATELET COUNT 258 10^3/uL (130-400); RED CELL DISTRIBUTION WIDTH 14.7 % (10.0-14.5); WHITE BLOOD COUNT 8.4 10^3/uL (4.3-11.0)
[2017-06-15 11:55] LABS: ANION GAP 10 MMOL/L (5-14); BLOOD UREA NITROGEN 17 MG/DL (7-18); BUN/CREATININE RATIO 20; CALCIUM 8.8 MG/DL (8.5-10.1); CARBON DIOXIDE 24 MMOL/L (21-32); CHLORIDE 109 MMOL/L (98-107); CREATININE SERUM 0.87 MG/DL (0.60-1.30); GFR ESTIMATED > 60; GLUCOSE 101 MG/DL (70-105); SODIUM 143 MMOL/L (135-145)
[2017-06-15] MEDS ORDERED: NS 50 ML (IVPB) BAG IV ONE (12:45)
[2017-06-15] MEDS ORDERED: IOHEXOL 350 MG/ML 100 ML (OMNIPAQUE 350) VIAL IV ONE (12:45)
--- NOTE | 2017-06-15 13:31 | Diagnostic Imaging Report ---
PROCEDURE: CT chest and abdomen with contrast. TECHNIQUE: Multiple contiguous axial images were obtained through the chest and abdomen after the administration of intravenous contrast. INDICATION: Difficulty breathing, history of lung surgery. COMPARISON: The chest CT is compared to 04/07/2017. There is no previous abdominal imaging. FINDINGS: CHEST: Old presumed post thoracotomy changes to the left osseous chest wall posteriorly are chronic. Some curvilinear calcifications and/or sutural opacity in the left upper lobe are chronic. No noncalcified dominant or suspicious chest nodule. There is no thoracic effusion. There is no hilar, mediastinal, or axillary lymphadenopathy. The central pulmonary arterial branches are opacified and patent. The aorta is patent and nonaneurysmal. There is no effusion or pneumothorax. ABDOMEN: The kidneys show nonobstructing calculi bilaterally. The gallbladder is surgically absent. The liver, spleen, adrenals, and pancreas are negative. There is no ascites. The abdominal small and large bowel loops visualized are nondilated. No ascites or free air. IMPRESSION: CHEST: Stable chronic findings in the left upper lobe and chest wall. No infiltrate, dominant mass, adenopathy, effusion, pneumothorax, or acute finding. ABDOMEN: Nonobstructing renal calculi. No acute abnormality is identified. Dictated by: Dictated on workstation # [id number]
[2017-06-15] MEDS ORDERED: CYCL5TAB PO (13:34)
[2017-06-15 13:45] VITALS: BP 132/78
[2017-06-15] MEDS ORDERED: ORPHENADRINE 60 MG/2 ML (NORFLEX) AMP IV ONE (13:45)
== END 2017-06-15 13:45 | disposition home or self-care (01) ==
LOC: EDUNIT# 11:01 → ER 11:03
DX: R07.89 Other chest pain (principal); J43.9 Emphysema, unspecified; I42.9 Cardiomyopathy, unspecified; M19.90 Unspecified osteoarthritis, unspecified site; E03.9 Hypothyroidism, unspecified; F32.9 Major depressive disorder, single episode, unspecified; F17.210 Nicotine dependence, cigarettes, uncomplicated; Z90.710 Acquired absence of both cervix and uterus; Z82.49 Family history of ischemic heart disease and other diseases of the circulatory system; Z98.51 Tubal ligation status
CPT/HCPCS: 36415; 71260; 74160; 80048; 85025; 99283

== ENCOUNTER → 2018-05-06 | Outpatient (CLI) | payer MEDICARE, MEDICAID ==
[~2018-05-06] MED LIST changes: +CYCL5TAB PO; +HYDR-3820
== END ==
LOC: RAD 08:27
PROVIDERS: ATTEND Nurse Practitioner Family
DX: Z12.31 Encounter for screening mammogram for malignant neoplasm of breast (principal)
CPT/HCPCS: 77067

== ENCOUNTER → 2018-06-22 | Outpatient (CLI) | payer MEDICARE, MEDICAID ==
[~2018-06-22] MED LIST changes: +BARIUM SUSPENSION 105% (LIQUID POLIBAR PLUS) 240 ML/DOSE PO ONE; +BARIUM SUSPENSION 60% (LIQUID EZ PAQUE) 240 ML DOSE PO ONE
--- NOTE | 2018-06-22 10:49 | Diagnostic Imaging Report ---
EXAMINATION: Barium swallow. INDICATION: Difficulty swallowing There are no prior studies available for comparison. The preliminary film fail to show any sign of an acute abnormality. There are incompletely healed rib fractures on the left. These findings are similar to the prior chest exam of 03/07/2015. A double contrast exam was performed. The patient swallowed the contrast material without difficulty. There was no delay or obstruction of the passage of barium through the esophagus. There was no evidence for a hiatal hernia but there was a small amount of gastroesophageal reflux. There is no sign of esophagitis. The stomach shows good distensibility and motility. The duodenal bulb and proximal small bowel are unremarkable. IMPRESSION: 1. There is no evidence for obstruction of the esophagus. 2. There is no sign of a hiatal hernia but there was a small amount of gastroesophageal reflux without esophagitis. 3. The stomach and duodenum are generally unremarkable. Dictated by: Dictated on workstation # [id number]
== END ==
LOC: RAD 09:43
PROVIDERS: ATTEND Nurse Practitioner Community Health
DX: K21.9 Gastro-esophageal reflux disease without esophagitis (principal)
CPT/HCPCS: 74220

== ENCOUNTER → 2018-12-22 | Outpatient (CLI) | payer MEDICARE, MEDICAID ==
--- NOTE | 2018-12-22 17:57 | Diagnostic Imaging Report ---
INDICATION: Intermittent coughing and choking episodes. EXAMINATION: Patient ingested effervescent crystals as well as thin and thick barium and imaging of the esophagus was performed. 50 seconds of fluoroscopy was utilized. FINDINGS: Preliminary radiograph demonstrates postsurgical changes to the left hemithorax with partial resection of left-sided ribs. The esophagus has a fairly smooth contour. No mass or stricture is identified. No gastroesophageal reflux or hilar hernia was demonstrated. IMPRESSION: Unremarkable esophagram. Dictated by: Dictated on workstation # [id number]
== END ==
LOC: RAD 10:59
PROVIDERS: ATTEND Nurse Practitioner Community Health
DX: T17.320A Food in larynx causing asphyxiation, initial encounter (principal); R05 Cough
CPT/HCPCS: 74220

== ENCOUNTER → 2019-11-13 | Outpatient (CLI) | payer MEDICARE, MEDICAID ==
[~2019-11-13] MED LIST changes: -BARIUM SUSPENSION 105% (LIQUID POLIBAR PLUS) 240 ML/DOSE PO ONE; -BARIUM SUSPENSION 60% (LIQUID EZ PAQUE) 240 ML DOSE PO ONE
--- NOTE | 2019-11-13 11:46 | Diagnostic Imaging Report ---
INDICATION: Screening. The current study was also evaluated with a Computer Aided Detection (CAD) system. 3-D Tomographic imaging was also performed. Comparison made with prior examination from 05/06/2018. FINDINGS: The fibroglandular tissue is heterogeneously dense bilaterally. There is no dominant mass, spiculated lesion, or suspicious calcification identified. Skin, nipples, and axillae are unremarkable. IMPRESSION: Negative. ACR BI-RADS Category 1: Negative. Result letter will be mailed to the patient. Note: At least 10% of breast cancer is not imaged by mammography. Dictated by: Dictated on workstation # [id number]
== END ==
LOC: RAD 11:09
PROVIDERS: ATTEND Nurse Practitioner Community Health
DX: Z12.31 Encounter for screening mammogram for malignant neoplasm of breast (principal)
CPT/HCPCS: 77067

== ENCOUNTER → 2020-11-14 | Outpatient (CLI) | payer MEDICARE, MEDICAID ==
[~2020-11-14] MED LIST changes: +ACHYD1T; -HYDR-3820
--- NOTE | 2020-11-15 09:45 | Diagnostic Imaging Report ---
INDICATION: Routine screening. COMPARISON is made with prior mammograms from 11/13/2019 and 05/06/2018. 2-D and 3-D bilateral screening mammography was performed with CAD. Scattered fibroglandular densities are identified bilaterally. The parenchymal pattern is stable. No mass or malignant appearing microcalcifications are seen. Axillae are unremarkable. IMPRESSION: BI-RADS Category 1 No mammographic features suspicious for malignancy are identified. Dictated by: Dictated on workstation # [id number]
== END ==
LOC: RAD 10:45
PROVIDERS: ATTEND Physician Assistant
DX: Z12.31 Encounter for screening mammogram for malignant neoplasm of breast (principal)
CPT/HCPCS: 77063; 77067

== ENCOUNTER 2020-12-29 15:48 | Emergency (ER) | payer MEDICARE, MEDICAID ==
[~2020-12-29] VITALS: Ht 160 cm; Wt 58.0 kg
--- NOTE | 2020-12-29 16:47 | ED Upper Extremity ---
General Chief Complaint: Upper Extremity Stated Complaint: FALL/R ARM INJ Nursing Triage Note: PT PRESENTS TO ED AFTER TRIPPING AND FALLING AROUND 1540. PT FELL WALKING PAST A BABY GATE LEANED UP AGAINST THE WALL, RT FOREARM HURTS. PT ALSO HIT HER HEAD ON THE CARPET WHEN SHE FELL. Nursing Sepsis Screen: No Definite Risk Source: patient Exam Limitations: no limitations History of Present Illness Date Seen by Provider: Dec 29, 2020 Time Seen by Provider: 16:45 Initial Comments to ER with reports right arm pain over the forearm wrist and fingers after she tripped and fell at home. Does not believe that she hit her head but she does have some right-sided neck pain. Onset: just prior to arrival Severity: moderate Pain/Injury Location: right elbow, right forearm Method of Injury: fell Modifying Factors: Worse With Movement Allergies and Home Medications Allergies Coded Allergies: cephalexin (Unverified Allergy, Unknown, 11/15/14) oxycodone (Unverified Allergy, Unknown, 11/15/14) propoxyphene (Unverified Allergy, Unknown, 11/15/14) Uncoded Allergies: TAPE (Allergy, Unknown, 11/15/14) Home Medications Albuterol Sulfate 2.5 Mg/3 Ml Nebu, 2.5 MG INH Q4H PRN for SHORTNESS OF BREATH Prescribed by: PALLAVI MCQUEEN on 11/15/14 1844 Budesonide/Formoterol Fumarate 1 Inhaler Aero, 1 PUFF IH BID, (Reported) Cyclobenzaprine HCl 5 Mg Tablet, 5 MG PO TID PRN for PAIN-MODERATE TO SEVERE Prescribed by: RODRI GEORGES on 06/15/17 1334 Gabapentin 300 Mg Capsule, 300 MG PO TID, (Reported) Levothyroxine Sodium 150 Mcg Tablet, 150 MCG PO DAILY, (Reported) Sertraline Hcl 100 Mg Tablet, 100 MG PO HS, (Reported) Simvastatin 20 Mg Tablet, 20 MG PO DAILY, (Reported) [Hydroxychl] , 200 MG DAILY, (Reported) Patient Home Medication List Home Medication List Reviewed: Yes Review of Systems Constitutional: see HPI EENTM: see HPI Respiratory: no symptoms reported Cardiovascular: no symptoms reported Genitourinary: no symptoms reported Musculoskeletal: see HPI Skin: no symptoms reported Psychiatric/Neurological: No Symptoms Reported Past Xprpipc-Zakubx-Pztgut Hx Patient Social History Alcohol Use: Denies Use Smoking Status: Current Everyday Smoker Type Used: Cigarettes Recent Infectious Disease Expo: No Immunizations Up To Date Tetanus Booster (TDap): Less than 5yrs Date of Pneumonia Vaccine: Jun 30, 2014 Date of Influenza Vaccine: Jun 30, 2014 Seasonal Allergies Seasonal Allergies: No Past Medical History Surgeries: Yes (FACE, LOWER LEFT AND UPPER RIGHT LEGS, BACK) Gallbladder, Hysterectomy, Orthopedic, Tubal Ligation Respiratory: Yes (HOME O2 AT NIGHT) COPD, Emphysema Cardiac: Yes (ENLARGED HEART) Cardiomyopathy Neurological: No Reproductive Disorders: No Gastrointestinal: No Musculoskeletal: Yes Arthritis Endocrine: Yes Hypothyroidsim, Lupus Tinnitis Loss of Vision: Right Hearing Impairment: Denies Cancer: No Psychosocial: Yes Depression Integumentary: No Blood Disorders: No Adverse Reaction/Blood Tranf: No Family Medical History Completed stroke G8 BROTHER Diabetes mellitus 19 MOTHER G8 BROTHER G8 SISTER FH: congestive heart failure 19 MOTHER FH: liver cancer G8 SISTER FH: multiple myeloma 19 FATHER Hypertension 19 FATHER Osteoporosis 19 MOTHER Physical Exam Vital Signs Vital Signs - First Documented 12/29/20 15:53 Temp 37.1 Pulse 107 Resp 20 B/P (MAP) 147/88 (107) Pulse Ox 96 O2 Delivery Room Air Capillary Refill : Less Than 3 Seconds Height, Weight, BMI Height: 5'2.00" Weight: 159lbs. oz. 72.531210fu; 22.00 BMI Method:Stated General Appearance: WD/WN, no apparent distress, other (Is much older than stated age) Neck: non-tender, full range of motion Respiratory: no respiratory distress, no accessory muscle use Gastrointestinal: normal bowel sounds, non tender Shoulder: normal inspection, non-tender Elbow/Forearm: normal inspection, Right, pain, soft tissue tenderness Wrist: Yes normal inspection, Yes non-tender Hand: normal inspection, Right, soft tissue tenderness Neurologic/Psychiatric: alert, normal mood/affect, oriented x 3 Skin: normal color, warm/dry Progress/Results/Core Measures Results/Orders My Orders Orders - RODRI GEORGES APRN Ct Head/Cervical Spine Wo (12/29/20 16:56) Forearm, Right, 2 Views (12/29/20 16:56) Hand, Right, 3 Views (12/29/20 16:56) Shoulder, Right, 3 Views (12/29/20 17:12) Vital Signs/I&O 12/29/20 15:53 Temp 37.1 Pulse 107 Resp 20 B/P (MAP) 147/88 (107) Pulse Ox 96 O2 Delivery Room Air Blood Pressure Mean: 107 Diagnostic Imaging Diagonstic Imaging: Xray Comments NAME: DICKSON HOGAN [facility] REC#: [id number] PT STATUS: REG ER : 1955 PHYSICIAN: RODRI GEORGES APRN ADMIT DATE: 12/29/20/ER Draft Date of Exam:12/29/20 FOREARM, RIGHT, 2 VIEWS INDICATION: Arm pain after fall. COMPARISON: Right hand radiographs performed concurrently. TECHNIQUE: Two views of the right forearm. FINDINGS: No displaced fracture within the right forearm. The wrist and elbow are grossly in normal alignment, but fine detail assessment is limited on this large field of view of the forearm. If there is concern for injury at the wrist or elbow, dedicated radiographs of these sites would be recommended. IMPRESSION: No acute displaced fracture within the right forearm. Dictated on workstation # [id number] Dict: 12/29/201750 Trans: 12/29/201754 [facility] [id number] Interpreted by: RUSSELL JEFFREY MD Electronically signed by: Departure Impression Primary Impression: Contusion of wrist Additional Impression: Contusion of elbow Disposition: 01 HOME, SELF-CARE Condition: Stable Departure-Patient Inst. Decision time for Depature: 17:59 Referrals[place] [facility] [place] Primary Care Physician RODRICK FLORES (Family) Primary Care Physician Patient Instructions: Contusion (DC) Add. Discharge Instructions: 1. Return to ER for any concerns. Follow-up with your doctor next week for recheck. Tylenol and ibuprofen for pain control in addition to the hydrocodone that you already have. All discharge instructions reviewed with patient and/or family. Voiced understanding. RODRI GEORGES APRN Dec 29, 2020 16:47
--- NOTE | 2020-12-29 17:35 | Diagnostic Imaging Report ---
PROCEDURE: CT head and CT cervical spine without contrast. TECHNIQUE: Multiple contiguous axial images were obtained through the brain and cervical spine without the use of intravenous contrast. Sagittal and coronal reformations through the cervical spine were then performed. Auto Exposure Controls were utilized during the CT exam to meet ALARA standards for radiation dose reduction. INDICATION: Right-sided neck pain. Fall. COMPARISON: None available. FINDINGS: CT head: No intracranial hyperdense hemorrhage or space-occupying mass. No hydrocephalus or midline shift. Baca-white matter differentiation is well-preserved. There is likely remote fracture deformities in the mid face. Chronic depressed nasal bone fracture. Right ocular prosthesis. Left globe is unremarkable. No feature of acute skull fracture. CT cervical spine: Diffuse osseous demineralization is present raising possibility of osteopenia or osteoporosis. There appears to be a chronic incompletely united fracture in the base of the dens (odontoid type II fracture). The posterior aspect of the fracture is healed while the anterior cortex of the dens remains nonfused. No features of acute fracture. No high-grade spinal stenosis. Multilevel facet osteoarthritis. No retropharyngeal fluid collection. Lung apices are clear. IMPRESSION: 1. No feature of acute intracranial process by CT. 2. No acute fracture or traumatic malalignment of the cervical spine. 3. 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 4. Numerous chronic fractures throughout the mid face and nasal bridge. Dictated by: Dictated on workstation # [id number]
--- NOTE | 2020-12-29 17:55 | Diagnostic Imaging Report ---
INDICATION: Arm pain after fall. COMPARISON: Right hand radiographs performed concurrently. TECHNIQUE: Two views of the right forearm. FINDINGS: No displaced fracture within the right forearm. The wrist and elbow are grossly in normal alignment, but fine detail assessment is limited on this large field of view of the forearm. If there is concern for injury at the wrist or elbow, dedicated radiographs of these sites would be recommended. IMPRESSION: No acute displaced fracture within the right forearm. Dictated by: Dictated on workstation # [id number]
--- NOTE | 2020-12-29 17:56 | Diagnostic Imaging Report ---
INDICATION: Right hand pain. COMPARISON: None available. TECHNIQUE: Three views of the right hand were obtained. FINDINGS: There is an old healed fracture deformity involving the distal 5th metacarpal diaphysis. No features of acute fracture within the hand. Degenerative arthritis is present in the thumb CMC. Diffuse osseous demineralization may be due to osteopenia/osteoporosis. IMPRESSION: 1. No acute fracture within the right hand. 2. Old healed fracture deformity of the 5th metacarpal. Dictated by: Dictated on workstation # [id number]
--- NOTE | 2020-12-29 17:57 | Diagnostic Imaging Report ---
INDICATION: Right shoulder pain. COMPARISON: None available. TECHNIQUE: Three views of the right shoulder were obtained. FINDINGS: No acute fracture or traumatic malalignment. Narrowing of the subacromial space with high riding humeral head is likely due to chronic superior rotator cuff tear. No abnormal soft tissue mineralization. IMPRESSION: 1. No acute fracture about the right shoulder. 2. Probable chronic rotator cuff tear. Dictated by: Dictated on workstation # [id number]
[2020-12-29 18:42] VITALS: BP 153/91
== END 2020-12-29 18:42 | disposition home or self-care (01) ==
LOC: EDUNIT# 15:48 → ER 15:49
DX: S60.211A Contusion of right wrist, initial encounter (principal); S50.01XA Contusion of right elbow, initial encounter; E03.9 Hypothyroidism, unspecified; F32.9 Major depressive disorder, single episode, unspecified; J43.9 Emphysema, unspecified; F17.210 Nicotine dependence, cigarettes, uncomplicated; Z79.51 Long term (current) use of inhaled steroids; Z79.890 Hormone replacement therapy; Z88.1 Allergy status to other antibiotic agents; Z88.5 Allergy status to narcotic agent; W01.0XXA Fall on same level from slipping, tripping and stumbling without subsequent striking against object, initial encounter; Y92.009 Unspecified place in unspecified non-institutional (private) residence as the place of occurrence of the external cause
CPT/HCPCS: 70450; 72125; 73030; 73090; 73130

== ENCOUNTER 2021-06-09 05:43 | Outpatient (CLI) | payer MEDICARE, MEDICAID ==
[~2021-06-09] VITALS: Ht 157.5 cm; Wt 58.2 kg
[2021-06-10] MEDS ORDERED: AMIT50TA3 PO (12:26)
[2021-06-10] MEDS ORDERED: SIMV20TA26 PO (12:26)
[2021-06-10] MEDS ORDERED: MELA1TAB20 PO (12:26)
[2021-06-10] MEDS ORDERED: PANT40TA52 PO (12:26)
[2021-06-10] MEDS ORDERED: SERT-414 PO (12:26)
[2021-06-10] MEDS ORDERED: MAGN500C15 PO (12:26)
[2021-06-10] MEDS ORDERED: IPRA3AMP31 IH (12:26)
[2021-06-10] MEDS ORDERED: HYDR200T46 PO (12:26)
[2021-06-10] MEDS ORDERED: GBPN600T PO (12:26)
[2021-06-10] MEDS ORDERED: NAPR-1070 PO (12:26)
[2021-06-10] MEDS ORDERED: LEVO150T6 PO (12:26)
== END 2021-06-10 15:04 | disposition home or self-care (01) ==
LOC: PREOP 05:43
PROVIDERS: ATTEND Surgery
DX: Z01.818 Encounter for other preprocedural examination (principal)

== ENCOUNTER 2021-06-16 09:49 | Day surgery (SDC) | payer MEDICARE, MEDICAID ==
[~2021-06-16] VITALS: Ht 157.5 cm; Wt 58.2 kg
[~2021-06-16 09:49] MED LIST changes: +AMIT50TA3 PO; +GBPN600T PO; +HYDR200T46 PO; +IPRA3AMP31 IH; +LEVO150T6 PO; +MAGN500C15 PO; +MELA1TAB20 PO; +NAPR-1070 PO; +PANT40TA52 PO; +SERT-414 PO; +SIMV20TA26 PO
[2021-06-16] MEDS ORDERED: LACTATED RINGERS 1,000 ML IV STA (09:51)
[2021-06-16] MEDS ORDERED: LACTATED RINGERS 1,000 ML IV ONE (10:02)
--- NOTE | 2021-06-16 10:05 | Progress Note-Pre Operative ---
Pre-Operative Progress Note H&P Reviewed The H&P was reviewed, patient examined and no changes noted. Time Seen by Provider: 10:03 Date H&P Reviewed: Jun 16, 2021 Time H&P Reviewed: 10:03 Pre-Operative Diagnosis: Screening colonoscopy GARY PICKARD DO Jun 16, 2021 10:05
[2021-06-16 10:10] VITALS: BP 138/87
[2021-06-16] MEDS ORDERED: PROPOFOL INJECTION 50 ML IV ONE (11:34)
--- NOTE | 2021-06-16 11:59 | Anesthesia-General Post-Op ---
MAC Patient Condition Mental Status/LOC: Same as Preop Cardiovascular: Satisfactory Nausea/Vomiting: Absent Respiratory: Satisfactory Pain: Controlled Complications: Absent Post Op Complications Complications None Follow Up Care/Instructions Patient Instructions None needed. Anesthesiology Discharge Order Discharge Order Patient is doing well, no complaints, stable vital signs, no apparent adverse anesthesia problems. No complications reported per nursing. ARMANDO CHANCE CRNA Jun 16, 2021 11:59
[2021-06-16 12:00] VITALS: BP 99/62
--- NOTE | 2021-06-16 12:03 | Progress Note-Post Operative ---
Post-Operative Progess Note Surgeon (s)/Package Designer (s) Surgeon GARY PICKARD DO Package Designer: SADI Bowers Pre-Operative Diagnosis Screening colonoscopy Post-Operative Diagnosis polyps int hemorrhoids Procedure & Operative Findings Date of Procedure 06/16/21 Procedure Performed/Findings Colon with snare polypectomy Colon with hot bx PROCEDURE NOTE: After informed consent was obtained, the patient was brought to the endoscopy suite, placed in bed in left lateral decubitus position. She was administered IV sedation by the LAN/WAN ENGINEER who then monitored her vitals the entire time, heart rate, blood pressure and pulse ox and the scope was inserted, on the way in found a flat polyp in the descending colon and elected to do a hot biopsy. Pushed in a little further and found a large pedunculated polyp, elected to take this with a hot snare; to completely remove it. Then pushed all the way to about 130 cm; into the cecum, took a picture of appendiceal orifice and noted the ileo-cecal valve then slowly withdrew the scope insufflating to look circumferentially at the martin. Starting in the cecum, up the ascending colon to the hepatic flexure, then down the transverse colon to the splenic flexure, into the descending colon down into the sigmoid and then into the rectal vault and retroflexed the scope. Took picture of the internal hemorrhoids. The patient tolerated the procedure. She was recovered in endoscopy suite. Anesthesia Type IV sedation by LAN/WAN ENGINEER Estimated Blood Loss Estimated blood loss (mL): scant Specimens/Packing Specimens Removed descending colon polyp x 2 GARY PICKARD DO Jun 16, 2021 12:03
--- NOTE | 2021-06-16 12:03 | Endoscopy Discharge Instruct ---
Endo Procedure/Findings Findings 1.: Polyp 2.: Internal Hemorrhoids Discharge Instructions - Activity: You might feel a little sleepy until tomorrow. This is due to the medicine you received to relax you. Until tomorrow, you should: NOT drive a car, operate machinery or power tools. NOT drink any alcoholic beverages. NOT make any important decisions or sign importortant papers. Do not return to work until tomorrow, unless otherwise instructed. Resume previous activities tomorrow. Diet: Start by taking liquids. If you tolerate liquids, advance to solid food. 1.: Colonscopy in 5 years Notify Physician - If you experience excessive bleeding, unusual abdominal pain, fever, or chest pain, contact your doctor immediately. GARY PICKARD DO Jun 16, 2021 12:03
[2021-06-16 12:05] VITALS: BP_SYST 115; BP_SYST 134; BP_DIAS 58; BP_DIAS 76
[2021-06-16 12:35] VITALS: BP 138/82
[2021-06-16 12:44] VITALS: BP 138/82
== END 2021-06-16 12:46 | disposition home or self-care (01) ==
LOC: ENDO 09:49
PROVIDERS: ATTEND Surgery
DX: Z12.11 Encounter for screening for malignant neoplasm of colon (principal); D12.4 Benign neoplasm of descending colon; K64.8 Other hemorrhoids; F41.9 Anxiety disorder, unspecified; F32.9 Major depressive disorder, single episode, unspecified; E78.5 Hyperlipidemia, unspecified; E07.9 Disorder of thyroid, unspecified; I42.9 Cardiomyopathy, unspecified; J44.9 Chronic obstructive pulmonary disease, unspecified; K21.9 Gastro-esophageal reflux disease without esophagitis; Z88.5 Allergy status to narcotic agent; Z88.1 Allergy status to other antibiotic agents; Z79.891 Long term (current) use of opiate analgesic; Z79.890 Hormone replacement therapy; Z91.048 Other nonmedicinal substance allergy status; Z79.899 Other long term (current) drug therapy; Z99.81 Dependence on supplemental oxygen

== ENCOUNTER 2021-11-04 12:21 | Emergency (ER) | payer MEDICARE, MEDICAID ==
[~2021-11-04] VITALS: Ht 157 cm; Wt 56.0 kg
--- NOTE | 2021-11-04 12:43 | ED Fall/Injury ---
General Chief Complaint: Trauma-Non Activation Stated Complaint: FALL/HEAD INJ/NECK PAIN Source: patient Exam Limitations: no limitations History of Present Illness Date Seen by Provider: Nov 04, 2021 Time Seen by Provider: 12:41 Initial Comments To ER by private vehicle accompanied by her daughter with reports of a fall this morning. She was walking down the hallway which was dark, her son's black lab was laying in the hallway and she didn't see it. She tripped over it striking the front of her forehead on the ground. She extended her head back. She now has some neck pain. No headache no loss of consciousness. No confusion. No anticoagulant use. No other injuries, no pain in her low back or hips or extr emities. She was able to get herself up. She denies any weakness or tingling of any of her extremities. Occurred: just prior to arrival Severity: moderate Injuries/Pain Location: head, neck Context: other Loss of Consciousness: no loss of consciousness Associated Symptoms (Fall): Neck Pain Allergies and Home Medications Allergies Coded Allergies: cephalexin (Unverified Allergy, Unknown, 11/15/14) oxycodone (Unverified Allergy, Unknown, 11/15/14) propoxyphene (Unverified Allergy, Unknown, 11/15/14) Uncoded Allergies: TAPE (Allergy, Unknown, 11/15/14) Patient Home Medication List Home Medication List Reviewed: Yes Amitriptyline HCl (Amitriptyline HCl) 50 Mg Tablet, 50 MG PO DAILY, (Reported) Entered as Reported by: DAVON AVILA on 06/10/21 1226 Gabapentin (Gabapentin) 600 Mg Tablet, 600 MG PO DAILY, (Reported) Entered as Reported by: DAVON AVILA on 06/10/21 1226 Hydrocodone Bit/Acetaminophen (HYDROcodone/APAP 10/325 TABLET) 1 Each Tablet, (Reported) Entered as Reported by: MAYELA AVERY on 06/15/17 1115 Hydroxychloroquine Sulfate (Hydroxychloroquine Sulfate) 200 Mg Tablet, 200 MG PO DAILY, (Reported) Entered as Reported by: DAVON AVILA on 06/10/21 1226 Ipratropium/Albuterol Sulfate (Iprat-Albut 0.5-3(2.5) mg/3 ml) 3 Ml Ampul.neb, 3 ML IH Q4H PRN for SHORTNESS OF BREATH, (Reported) Entered as Reported by: DAVON AVILA on 06/10/21 1226 Levothyroxine Sodium (Levothyroxine Sodium) 150 Mcg Tablet, 150 MCG PO DAILY, (Reported) Entered as Reported by: DAVON AVILA on 06/10/21 122 Magnesium Oxide (Magnesium) 500 Mg Capsule, 500 MG PO DAILY, (Reported) Entered as Reported by: DAVON AVILA on 06/10/21 1226 Melatonin/Pyridoxine HCl (B6) (Melatonin 10 mg Tablet) 1 Each Tab.mphase, 1 EACH PO DAILY, (Reported) Entered as Reported by: DAVON AVILA on 06/10/21 1226 Naproxen Sodium (Anaprox Ds) 550 Mg Tablet, 550 MG PO BID, (Reported) Entered as Reported by: DAVON AVILA on 06/10/21 122 Pantoprazole Sodium (Pantoprazole Sodium) 40 Mg Tablet.dr, 40 MG PO DAILY, (Reported) Entered as Reported by: DAVON AVILA on 06/10/21 122 Sertraline HCl (Sertraline HCl) 100 Mg Tablet, 100 MG PO DAILY, (Reported) Entered as Reported by: DAVON AVILA on 06/10/21 122 Simvastatin (Simvastatin) 20 Mg Tablet, 20 MG PO DAILY, (Reported) Entered as Reported by: DICKSON ELENA on 11/15/14 1557 Simvastatin (Simvastatin) 20 Mg Tablet, 20 MG PO DAILY, (Reported) Entered as Reported by: DAVON AVILA on 06/10/21 1226 Review of Systems Review of Systems Constitutional: see HPI Eyes: No Symptoms Reported Ears, Nose, Mouth, Throat: no symptoms reported Respiratory: no symptoms reported Cardiovascular: no symptoms reported Genitourinary: no symptoms reported Musculoskeletal: see HPI, neck pain Skin: no symptoms reported Psychiatric/Neurological: No Symptoms Reported Past Lmbzqdg-Vctzys-Glbzwm Hx Immunizations Up To Date Tetanus Booster (TDap): Less than 5yrs First/Initial COVID19 Vaccinat: NOVEMBER Seasonal Allergies Seasonal Allergies: No Past Medical History Surgeries: Yes (FACE, LOWER LEFT AND UPPER RIGHT LEGS, BACK) Gallbladder, Hysterectomy, Orthopedic, Tubal Ligation Respiratory: Yes (HOME O2 AT NIGHT) COPD, Emphysema Cardiac: Yes (ENLARGED HEART) Cardiomyopathy Neurological: No Reproductive Disorders: No Gastrointestinal: No Musculoskeletal: Yes Arthritis Endocrine: Yes Hypothyroidsim, Lupus Tinnitis Loss of Vision: Right Hearing Impairment: Denies Cancer: No Psychosocial: Yes Depression Integumentary: No Blood Disorders: No Adverse Reaction/Blood Tranf: No Family Medical History Completed stroke G8 BROTHER Diabetes mellitus 19 MOTHER G8 BROTHER G8 SISTER FH: congestive heart failure 19 MOTHER FH: liver cancer G8 SISTER FH: multiple myeloma 19 FATHER Hypertension 19 FATHER Osteoporosis 19 MOTHER Physical Exam Vital Signs Vital Signs - First Documented 11/04/21 12:39 Temp 36.3 Pulse 85 Resp 18 B/P (MAP) 160/81 (107) Pulse Ox 98 Capillary Refill : Height, Weight, BMI Height: 5'2.00" Weight: 159lbs. oz. 72.510152pv; 23.46 BMI Method:Stated General Appearance: WD/WN, no apparent distress HEENT: PERRL/EOMI, normal ENT inspection, other (Abrasion of the right side of the forehead without laceration) Neck: supple, normal inspection, limited range of motion, tender lateral, tender midline Respiratory: no respiratory distress, no accessory muscle use Gastrointestinal: normal bowel sounds, non tender Extremities: normal range of motion, non-tender Neurologic/Psychiatric: alert, normal mood/affect, oriented x 3 Skin: normal color, warm/dry Vj Coma Score Best Eye Response: (4) Open Spontaneously Best Verbal Response: (5) Oriented Best Motor Response: (6) Obeys Commands [place] Total: 15 Progress/Results/Core Measures Results/Orders Lab Results Laboratory Tests Test 11/04/21 13:26 11/04/21 13:35 Range/Units White Blood Count 7.7 4.3-11.0 10^3/uL Red Blood Count 4.15 3.80-5.11 10^6/uL Hemoglobin 12.9 11.5-16.0 g/dL Hematocrit 39 35-52 % Mean Corpuscular Volume 95 80-99 fL Mean Corpuscular Hemoglobin 31 25-34 pg Mean Corpuscular Hemoglobin Concent 33 32-36 g/dL Red Cell Distribution Width 13.9 10.0-14.5 % Platelet Count 248 130-400 10^3/uL Mean Platelet Volume 10.4 9.0-12.2 fL Immature Granulocyte % (Auto) 0 % Neutrophils (%) (Auto) 75 42-75 % Lymphocytes (%) (Auto) 13 12-44 % Monocytes (%) (Auto) 8 0-12 % Eosinophils (%) (Auto) 3 0-10 % Basophils (%) (Auto) 1 0-10 % Neutrophils # (Auto) 5.8 1.8-7.8 10^3/uL Lymphocytes # (Auto) 1.0 1.0-4.0 10^3/uL Monocytes # (Auto) 0.6 0.0-1.0 10^3/uL Eosinophils # (Auto) 0.2 0.0-0.3 10^3/uL Basophils # (Auto) 0.1 0.0-0.1 10^3/uL Immature Granulocyte # (Auto) 0.0 0.0-0.1 10^3/uL Prothrombin Time 13.1 12.2-14.7 SEC INR Comment 1.0 0.8-1.4 Sodium Level 141 135-145 MMOL/L Potassium Level 4.2 3.6-5.0 MMOL/L Chloride Level 106 98-107 MMOL/L Carbon Dioxide Level 27 21-32 MMOL/L Anion Gap 8 5-14 MMOL/L Blood Urea Nitrogen 11 7-18 MG/DL Creatinine 0.92 0.60-1.30 MG/DL Estimat Glomerular Filtration Rate 69 BUN/Creatinine Ratio 12 Glucose Level 82 70-105 MG/DL Calcium Level 8.7 8.5-10.1 MG/DL Urine Color YELLOW Urine Clarity SL CLOUDY Urine pH 7.0 5-9 Urine Specific [place] 1.010 L 1.016-1.022 Urine Protein NEGATIVE NEGATIVE Urine Glucose (UA) NEGATIVE NEGATIVE Urine Ketones NEGATIVE NEGATIVE Urine Nitrite NEGATIVE NEGATIVE Urine Bilirubin NEGATIVE NEGATIVE Urine Urobilinogen 0.2 < = 1.0 MG/DL Urine Leukocyte Esterase 1+ H NEGATIVE Urine RBC (Auto) NEGATIVE NEGATIVE Urine RBC NONE /HPF Urine WBC 2-5 /HPF Urine Squamous Epithelial Cells RARE /HPF Urine Crystals PRESENT H /LPF Urine Amorphous Sediment FEW RICHARD URATES H /LPF Urine Bacteria FEW H /HPF Urine Casts NONE /LPF Urine Mucus NEGATIVE /LPF Urine Culture Indicated YES My Orders Orders - RODRI GEORGES WHEELCHAIR DRIVER Cbc With Automated Diff (11/04/21 12:40) Basic Metabolic Panel (11/04/21 12:40) Ct Head/Cervical Spine Wo (11/04/21 12:40) Ua Culture If Indicated (11/04/21 12:40) Protime With Inr (11/04/21 12:40) Urine Culture (11/04/21 13:35) Vital Signs/I&O 11/04/21 12:39 Temp 36.3 Pulse 85 Resp 18 B/P (MAP) 160/81 (107) Pulse Ox 98 Departure Communication (Admissions) Family Conversation [id number] spoke with Dr. Jordan from neurosurgery at [facility] in [place]. The bilaminar fracture of C1 was not seen on prior CT but it appears old as well. The type II odontoid fracture was seen on December and is unchanged. Given the chronic appearance of the bilaminar fracture and the known chronicity of the odontoid fracture we will have her set up to see Dr. Jordan from neurosurgery at [facility] this , 11/06/2021 in the outpatient setting. I will give her a soft collar to go home with. She has no neurologic deficit. NAME: DICKSON HOGAN [facility] REC#: [id number] PT STATUS: REG ER : 1955 PHYSICIAN: RODRI GEORGES WHEELCHAIR DRIVER ADMIT DATE: 11/04/21/ER Draft Date of Exam:11/04/21 CT HEAD/CERVICAL SPINE WO PROCEDURE: CT head and CT cervical spine without contrast. TECHNIQUE: Multiple contiguous axial images were obtained through the brain and cervical spine without the use of intravenous contrast. Sagittal and coronal reformations through the cervical spine were then performed. Auto Exposure Controls were utilized during the CT exam to meet ALARA standards for radiation dose reduction. INDICATION: Fall with face, head and neck injury. Correlation is made with prior CT from 12/29/2020. CT HEAD: Ventricles and sulci are within normal limits. No sulcal effacement or midline shift is identified. No acute intra-axial or extra-axial hemorrhage is detected. Cisterns are patent. Visualized paranasal sinuses are clear. 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 IMPRESSION: No acute intracranial process is detected. CT CERVICAL SPINE: Curvature of the cervical spine is normal. The fracture through the base of the odontoid consistent with type II odontoid fracture is again noted. No significant healing has occurred. There also appear to be bilaminar fractures of C1. This was not definitely seen on prior CT cervical spine study. However, fracture margins are very smooth and this has the appearance of an ununited previous fracture. No other fractures are identified. Prevertebral tissues are within normal limits. IMPRESSION: Ununited type II odontoid fracture. Fracture line remains clearly visible without bridging callus formation. Bilaminar C1 fractures. Age is indeterminate however these fracture margins are smooth and these may be chronic. Dictated on workstation # [id number] Dict: 11/04/21 1304 Trans: 11/04/[address] [facility] [id number] Interpreted by: WILLI SCOTT MD Electronically signed by: Impression Primary Impression: C1 cervical fracture Disposition: 01 HOME, SELF-CARE Condition: Stable Departure-Patient Inst. Decision time for Depature: 13:42 Referrals: [facility] (PCP) Primary Care Physician CORWIN RILEY (Family) Primary Care Physician Patient Instructions: Neck Fracture Add. Discharge Instructions: 1. You have 2 fractures in your neck. We know that one of them is chronic because it was there on a CT scan in December 2020. The other fracture also has th e appearance of an old fracture given the smooth borders of the fracture edges. I spoke with the neurosurgeon Dr. Jordan at [facility] and since these are both likely chronic based on appearance you do not have to go to [place] today but we would like you to see Dr. Jordan this . You will call his office at [phone] today for an appointment time. In the meantime, wear the soft cervical collar, continue your current pain medication regimen. Be sure to take the disc of your images with you to your appointment. RODRI GEORGES APRN Nov 04, 2021 12:43
--- NOTE | 2021-11-04 13:12 | Diagnostic Imaging Report ---
PROCEDURE: CT head and CT cervical spine without contrast. TECHNIQUE: Multiple contiguous axial images were obtained through the brain and cervical spine without the use of intravenous contrast. Sagittal and coronal reformations through the cervical spine were then performed. Auto Exposure Controls were utilized during the CT exam to meet ALARA standards for radiation dose reduction. INDICATION: Fall with face, head and neck injury. Correlation is made with prior CT from 12/29/2020. CT HEAD: Ventricles and sulci are within normal limits. No sulcal effacement or midline shift is identified. No acute intra-axial or extra-axial hemorrhage is detected. Cisterns are patent. Visualized paranasal sinuses are clear. 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 IMPRESSION: No acute intracranial process is detected. CT CERVICAL SPINE: Curvature of the cervical spine is normal. The fracture through the base of the odontoid consistent with type II odontoid fracture is again noted. No significant healing has occurred. There also appear to be bilaminar fractures of C1. This was not definitely seen on prior CT cervical spine study. However, fracture margins are very smooth and this has the appearance of an ununited previous fracture. No other fractures are identified. Prevertebral tissues are within normal limits. IMPRESSION: Ununited type II odontoid fracture. Fracture line remains clearly visible without bridging callus formation. Bilaminar C1 fractures. Age is indeterminate however these fracture margins are smooth and these may be chronic. Dictated by: Dictated on workstation # [id number]
[2021-11-04 13:32] LABS: BASOPHILS # (AUTO) 0.1 10^3/uL (0.0-0.1); BASOPHILS % (AUTO) 1 % (0-10); EOSINOPHILS # (AUTO) 0.2 10^3/uL (0.0-0.3); EOSINOPHILS % (AUTO) 3 % (0-10); HEMATOCRIT 39 % (35-52); HEMOGLOBIN 12.9 g/dL (11.5-16.0); LYMPHOCYTES % (AUTO) 13 % (12-44); MEAN CORPUSCULAR HEMOGLOBIN 31 pg (25-34); MEAN CORPUSCULAR HGB CONC 33 g/dL (32-36); MEAN CORPUSCULAR VOLUME 95 fL (80-99); MEAN PLATELET VOLUME 10.4 fL (9.0-12.2); MONOCYTES # (AUTO) 0.6 10^3/uL (0.0-1.0); MONOCYTES % (AUTO) 8 % (0-12); NEUTROPHILS # (AUTO) 5.8 10^3/uL (1.8-7.8); NEUTROPHILS % (AUTO) 75 % (42-75); PLATELET COUNT 248 10^3/uL (130-400); WHITE BLOOD COUNT 7.7 10^3/uL (4.3-11.0)
[2021-11-04 13:38] LABS: BILIRUBIN,URINE NEGATIVE (NEGATIVE); CLARITY,URINE SL CLOUDY; COLOR,URINE YELLOW; GLUCOSE, URINE (UA) NEGATIVE (NEGATIVE); KETONES,URINE NEGATIVE (NEGATIVE); LEUKOCYTE ESTERASE ,URINE 1+ (NEGATIVE); NITRITE,URINE NEGATIVE (NEGATIVE); PROTEIN,URINE NEGATIVE (NEGATIVE)
[2021-11-04 13:46] LABS: PROTHROMBIN TIME PATIENT 13.1 SEC (12.2-14.7)
[2021-11-04 13:49] LABS: POTASSIUM 4.2 MMOL/L (3.6-5.0)
[2021-11-04 13:50] LABS: CALCIUM 8.7 MG/DL (8.5-10.1)
[2021-11-04 13:54] LABS: BACTERIA,URINE FEW /HPF; SQUAMOUS EPITHELIAL CELL,UR RARE /HPF
[2021-11-04 13:55] LABS: CREATININE SERUM 0.92 MG/DL (0.60-1.30)
[2021-11-04 13:56] LABS: AMORPHOUS SEDIMENT,UR FEW AMOR URATES /LPF
[2021-11-04 14:30] VITALS: BP 148/72
== END 2021-11-04 14:34 | disposition home or self-care (01) ==
LOC: EDUNIT# 12:21 → ER 12:22
DX: S12.090A Other displaced fracture of first cervical vertebra, initial encounter for closed fracture (principal); S00.81XA Abrasion of other part of head, initial encounter; J44.9 Chronic obstructive pulmonary disease, unspecified; E03.9 Hypothyroidism, unspecified; F32.9 Major depressive disorder, single episode, unspecified; Z79.890 Hormone replacement therapy; Z79.899 Other long term (current) drug therapy; W22.8XXA Striking against or struck by other objects, initial encounter
CPT/HCPCS: 36415; 70450; 72125; 80048; 81000; 85025; 85610; 87088

== ENCOUNTER 2022-04-21 12:55 | Outpatient (RCR) | payer MEDICARE, MEDICAID ==
[~2022-04-21] VITALS: Ht 157.5 cm; Wt 48.1 kg
[2022-04-21 16:28] LABS: BASOPHILS # (AUTO) 0.1 10^3/uL (0.0-0.1); BASOPHILS % (AUTO) 1 % (0-10); EOSINOPHILS # (AUTO) 0.2 10^3/uL (0.0-0.3); EOSINOPHILS % (AUTO) 2 % (0-10); HEMATOCRIT 40 % (35-52); HEMOGLOBIN 12.9 g/dL (11.5-16.0); LYMPHOCYTES # (AUTO) 1.1 10^3/uL (1.0-4.0); LYMPHOCYTES % (AUTO) 11 % (12-44); MEAN CORPUSCULAR HEMOGLOBIN 29 pg (25-34); MEAN CORPUSCULAR HGB CONC 32 g/dL (32-36); MEAN CORPUSCULAR VOLUME 92 fL (80-99); MONOCYTES # (AUTO) 0.9 10^3/uL (0.0-1.0); MONOCYTES % (AUTO) 9 % (0-12); NEUTROPHILS # (AUTO) 7.3 10^3/uL (1.8-7.8); NEUTROPHILS % (AUTO) 75 % (42-75); PLATELET COUNT 250 10^3/uL (130-400); WHITE BLOOD COUNT 9.7 10^3/uL (4.3-11.0)
[2022-04-21 16:51] LABS: ALBUMIN 3.7 GM/DL (3.2-4.5); BILIRUBIN,TOTAL 0.3 MG/DL (0.1-1.0); CALCIUM 10.7 MG/DL (8.5-10.1); CREATININE SERUM 0.96 MG/DL (0.60-1.30); POTASSIUM 4.5 MMOL/L (3.6-5.0); TOTAL PROTEIN 7.4 GM/DL (6.4-8.2)
[2022-04-22] MEDS ORDERED: NORMAL SALINE IV SCH (09:45)
[2022-04-22] MEDS ORDERED: CARBOPLATIN IV SCH (09:45)
[2022-04-22] MEDS ORDERED: NS IV 1000 ML (CANCER CTR) IV SCH (09:45)
[2022-04-22] MEDS ORDERED: D5W IV SCH (09:45)
[2022-04-22] MEDS ORDERED: ETOPOSIDE IV SCH (09:45)
[2022-04-22] MEDS ORDERED: HEParin (CENTRAL IV FLUSH) 500 UNIT/5 ML SYR IV PRN (09:45)
[2022-04-22] MEDS ORDERED: DEXAMETHASONE IV SCH (09:45)
[2022-04-22] MEDS ORDERED: PEMBROLIZUMAB 200 MG in NS (IVPB) 50 ML IV SCH (09:45)
[2022-04-22] MEDS ORDERED: NS IV SCH (09:45)
[2022-04-22] MEDS ORDERED: FOSAPREPITANT (CANCER CENTER) 150 MG in NS (IVPB) CANCER CENTER ONLY 150 ML IV SCH (09:45)
[2022-04-22] MEDS ORDERED: ONDANSETRON IV SCH (09:45)
== END 2022-04-26 | disposition home or self-care (01) ==
LOC: ONC 12:55
PROVIDERS: ATTEND Internal Medicine Hematology & Oncology
DX: C34.90 Malignant neoplasm of unspecified part of unspecified bronchus or lung (principal); J44.9 Chronic obstructive pulmonary disease, unspecified; C79.9 Secondary malignant neoplasm of unspecified site; Z99.81 Dependence on supplemental oxygen
CPT/HCPCS: 36415; 80053; 85025; 99204

== ENCOUNTER 2022-04-27 12:01 | Outpatient (CLI) | payer MEDICARE, MEDICAID ==
[~2022-04-27] VITALS: Ht 157.5 cm; Wt 47.6 kg
== END 2022-04-27 13:05 | disposition home or self-care (01) ==
LOC: PREOP 12:01
PROVIDERS: ATTEND Surgery
DX: Z01.818 Encounter for other preprocedural examination (principal)

== ENCOUNTER 2022-04-28 19:07 | Emergency (ER) | payer MEDICARE, MEDICAID ==
[~2022-04-28] VITALS: Ht 157.5 cm; Wt 48.0 kg
[2022-04-28] MEDS ORDERED: fentaNYL INJ 100 MCG/2 ML AMP IM ONE (19:30)
--- NOTE | 2022-04-28 20:02 | Diagnostic Imaging Report ---
INDICATION: Shoulder pain. COMPARISON: 12/29/2020 FINDINGS: The humeral head is high riding which suggests underlying rotator cuff pathology. The bones are osteopenic. Humeral head morphology is normal. There are no findings of an acute fracture or suspicious bone lesion. AC joint alignment appears appropriate. There is discoid atelectasis within the right lung. IMPRESSION: Osteopenia without findings of acute fracture, glenohumeral joint dislocation or AC joint malalignment. High riding humeral head suggests underlying rotator cuff tear. Dictated by: Dictated on workstation # [id number]
--- NOTE | 2022-04-28 20:07 | ED Upper Extremity ---
General Chief Complaint: Upper Extremity Stated Complaint: SHOULDER PAIN Nursing Triage Note: PT TO ROOM BY [facility]. PT REPORTS BEING IN THE SHOWER WITH HELP FROM FAMILY. PT REPORTS SHE FELT A "POP" IN HER RIGHT SHOULDER/UPPER ARM AND THEN SHE FELT A SECOND "POP" IN THE SAME PLACE MOMENTS LATER. PT REPORTS PAIN IS A 10/10 IN THIS AREA Source: patient Exam Limitations: no limitations History of Present Illness Date Seen by Provider: Apr 28, 2022 Time Seen by Provider: 19:10 Initial Comments This is 67-year-old woman presents to the emergency room via EMS accompanied by her family with concerns about sudden onset of right shoulder pain. The pain occurred while she was moving about and adjusting her position in the shower. She felt a pop and had sudden pain. There was a second pop when she moved further. There was no blunt trauma or strain on the arm at the time. She was moving her upper extremity through the air only. She has history of small cell lung cancer and family reports metastatic disease probable to the bones. She has a pending PET scan. Distal extremity is unremarkable. There is no gross deformity. She has tenderness in the proximal shoulder. Corwin Davis is her primary care provider. She sees Dr. Durand at the cancer center. Allergies and Home Medications Allergies Coded Allergies: cephalexin (Unverified Allergy, Unknown, 11/15/14) oxycodone (Unverified Allergy, Unknown, 11/15/14) propoxyphene (Unverified Allergy, Unknown, 11/15/14) Uncoded Allergies: TAPE (Allergy, Unknown, 11/15/14) Patient Home Medication List Home Medication List Reviewed: Yes Amitriptyline HCl (Amitriptyline HCl) 50 Mg Tablet, 50 MG PO DAILY, (Reported) Entered as Reported by: DAVON AVILA on 06/10/21 1226 Gabapentin (Gabapentin) 600 Mg Tablet, 600 MG PO DAILY, (Reported) Entered as Reported by: DAVON AVILA on 06/10/21 1226 Hydrocodone Bit/Acetaminophen (HYDROcodone/APAP 10/325 TABLET) 1 Each Tablet, (Reported) Entered as Reported by: MAYELA AVERY on 06/15/17 1115 Hydroxychloroquine Sulfate (Hydroxychloroquine Sulfate) 200 Mg Tablet, 200 MG PO DAILY, (Reported) Entered as Reported by: DAVON AVILA on 06/10/21 1226 Ipratropium/Albuterol Sulfate (Iprat-Albut 0.5-3(2.5) mg/3 ml) 3 Ml Ampul.neb, 3 ML IH Q4H PRN for SHORTNESS OF BREATH, (Reported) Entered as Reported by: DAVON AVILA on 06/10/21 1226 Levothyroxine Sodium (Levothyroxine Sodium) 150 Mcg Tablet, 150 MCG PO DAILY, (Reported) Entered as Reported by: DAVON AVILA on 06/10/21 1226 Magnesium Oxide (Magnesium) 500 Mg Capsule, 500 MG PO DAILY, (Reported) Entered as Reported by: DAVON AVILA on 06/10/21 1226 Melatonin/Pyridoxine HCl (B6) (Melatonin 10 mg Tablet) 1 Each Tab.mphase, 1 EACH PO DAILY, (Reported) Entered as Reported by: DAVON AVILA on 06/10/21 1226 Naproxen Sodium (Anaprox Ds) 550 Mg Tablet, 550 MG PO BID, (Reported) Entered as Reported by: DAVON AVILA on 06/10/21 1226 Pantoprazole Sodium (Pantoprazole Sodium) 40 Mg Tablet.dr, 40 MG PO DAILY, (Reported) Entered as Reported by: DAVON AVILA on 06/10/21 1226 Sertraline HCl (Sertraline HCl) 100 Mg Tablet, 100 MG PO DAILY, (Reported) Entered as Reported by: DAVON AVILA on 06/10/21 1226 Simvastatin (Simvastatin) 20 Mg Tablet, 20 MG PO DAILY, (Reported) Entered as Reported by: DAVON AVILA on 06/10/21 1226 Discontinued Medications Simvastatin (Simvastatin) 20 Mg Tablet, 20 MG PO DAILY, (Reported) Discontinued Reason: No Longer Taking Entered as Reported by: DICKSON ELENA on 11/15/14 0717 Review of Systems Constitutional: no symptoms reported EENTM: no symptoms reported Respiratory: no symptoms reported Cardiovascular: no symptoms reported Gastrointestinal: no symptoms reported Genitourinary: no symptoms reported : No Musculoskeletal: see HPI Skin: no symptoms reported Past Uonyyen-Jvkpzb-Irqjxn Hx Immunizations Up To Date Tetanus Booster (TDap): Less than 5yrs First/Initial COVID19 Vaccinat: J AND J Second COVID19 Vaccination Parminder: J AND J Seasonal Allergies Seasonal Allergies: No Past Medical History Surgeries: Yes (FACE, LOWER LEFT AND UPPER RIGHT LEGS, BACK) Gallbladder, Hysterectomy, Orthopedic, Tubal Ligation Respiratory: Yes (HOME O2 AT NIGHT) COPD, Emphysema Cardiac: Yes (ENLARGED HEART) Cardiomyopathy Neurological: No Reproductive Disorders: No Genitourinary: No Gastrointestinal: No Musculoskeletal: Yes Osteoporosis, Arthritis Endocrine: Yes Hypothyroidsim, Lupus HEENT: Yes Tinnitis Loss of Vision: Right Hearing Impairment: Denies Cancer: Yes Lung (Small cell lung cancer) Psychosocial: Yes Depression Integumentary: No Blood Disorders: No Adverse Reaction/Blood Tranf: No Family Medical History Completed stroke G8 BROTHER Diabetes mellitus 19 MOTHER G8 BROTHER G8 SISTER FH: congestive heart failure 19 MOTHER FH: liver cancer G8 SISTER FH: multiple myeloma 19 FATHER Hypertension 19 FATHER Osteoporosis 19 MOTHER Physical Exam Vital Signs Vital Signs - First Documented 04/28/22 04/29/22 19:09 01:10 Temp 36.8 Pulse 112 Resp 30 B/P (MAP) 122/58 (79) Pulse Ox 98 O2 Delivery Nasal Cannula O2 Flow Rate 3.00 Capillary Refill : Height, Weight, BMI Height: 5'2.00" Weight: 159lbs. oz. 72.356394qv; 19.00 BMI Method:Stated General Appearance: WD/WN, no apparent distress HEENT: PERRL/EOMI, normal ENT inspection Neck: normal inspection Cardiovascular: regular rate, rhythm, no edema, other (Normal right radial pulse) Respiratory: normal breath sounds, no respiratory distress, rhonchi Shoulder: normal inspection, non-tender (Nontender clavicle); No asymmetry; bone tenderness (Generalized tenderness in the proximal shoulder); No deformity; limited ROM, pain Elbow/Forearm: normal inspection, non-tender, no evidence of injury, normal ROM, Right Wrist: Yes normal inspection, Yes non-tender, Yes no evidence of injury, Yes normal ROM Hand: normal inspection, non-tender, no evidence of injury, normal ROM, Right Neurologic/Tendon: normal sensation, normal motor functions, normal tendon functions 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, no motor/sensory deficits, alert Skin: normal color, warm/dry Progress/Results/Core Measures Results/Orders My Orders Orders - KHANG BETH MD Shoulder, Right, 3 Views (04/28/22 19:20) Fentanyl Inj (Sublimaze Injection) (04/28/22 19:30) Ct Chest Wo (04/28/22 20:55) Ed Iv/Invasive Line Start (04/28/22 23:04) Fentanyl Inj (Sublimaze Injection) (04/28/22 23:15) Medications Given in ED Current Medications Medications Dose Ordered Sig/Jean Paul Route Start Time Stop Time Status Last Admin Dose Admin Fentanyl Citrate 25 mcg ONCE ONCE IVP 04/28/22 23:15 04/28/22 23:16 DC 04/28/22 23:14 25 MCG Fentanyl Citrate 50 mcg ONCE ONCE IM 04/28/22 19:30 04/28/22 19:31 DC 04/28/22 19:29 50 MCG Vital Signs/I&O 04/28/22 04/29/22 19:09 01:10 Temp 36.8 Pulse 112 107 Resp 30 17 B/P (MAP) 122/58 (79) 142/87 Pulse Ox 98 97 O2 Delivery Nasal Cannula O2 Flow Rate 3.00 Blood Pressure Mean: 79 Progress Progress Note #1: Time: 20:56 Progress Note X-ray did not reveal any definite fractures. There was some lucency that favored nutrient line or overlap artifact at the distal clavicle. I discussed with the radiologist. He recommended CT of the chest including the affected areas given her history of possible bone metastases. Patient does have surgery scheduled for port placement in the morning. I do believe it is important to understand exactly what is going on with her anatomically before she has this procedure. For that reason we are obtaining a CT of the chest including the right shoulder. Patient did receive fentanyl 50 mcg IM for pain control. Given history of probable rotator cuff injury, it is also possible she dislocated her shoulder when moving about today with spontaneous reduction. Progress Note #2: Time: 23:35 Progress Note There were numerous findings on the CT scan concerning for metastatic disease. There were no fractures or dislocations associated with the shoulder. There was an incidental burst fracture of L1 noted. I discussed this fracture with the radiologist who could not vouch for its stability. He recommended discussing with a spine surgeon. I discussed with Dr. Jordan, neurosurgeon at [facility]. He recommends transfer there for MRI and direct evaluation. Patient is agreeable to this plan. We have established IV to enable treatment of pain in route if needed. Patient has intact sensation and motor control of her feet. She does describe some bowel and bladder control problems. It is difficult to ascertain whether these bowel and bladder problems are due to her overall chronic condition or her spine fracture. Patient is able to ambulate with assistance but does not ambulate independently. We discussed goals and direction of care. I did express concern that we need to understand what is happening with this spine fracture before proceeding to other treatments as there is threat to her neurologic integrity until the fracture is better understood. Patient states she wants to be aggressive in her care and she would like to be transferred to [facility] for further evaluation. Diagnostic Imaging Diagonstic Imaging: Xray Plain Films/CT/US/NM/MRI: other (Right shoulder) Comments Right shoulder x-ray viewed by me and report reviewed. Discussed with the radiologist. See report below NAME: DICKSON HOGAN [facility] REC#: [id number] PT STATUS: REG ER : 1955 PHYSICIAN: KHANG BETH MD ADMIT DATE: 04/28/22/ER Draft Date of Exam:04/28/22 SHOULDER, RIGHT, 3 VIEWS INDICATION: Shoulder pain. COMPARISON: 12/29/2020 FINDINGS: The humeral head is high riding which suggests underlying rotator cuff pathology. The bones are osteopenic. Humeral head morphology is normal. There are no findings of an acute fracture or suspicious bone lesion. AC joint alignment appears appropriate. There is discoid atelectasis within the right lung. IMPRESSION: Osteopenia without findings of acute fracture, glenohumeral joint dislocation or AC joint malalignment. High riding humeral head suggests underlying rotator cuff tear. Dictated on workstation # [id number] Dict: 04/28/221952 Trans: 04/28/[address] [place] [address] [phone] Interpreted by: NEHEMIAH BROOKS MD Diagonstic Imaging: CT Plain Films/CT/US/NM/MRI: chest Comments CT scan viewed by me and report reviewed. Discussed with the radiologist. See report below: NAME: DICKSON HOGAN [facility] REC#: [id number] PT STATUS: REG ER : 1955 PHYSICIAN: KHANG BETH MD ADMIT DATE: 04/28/22/ER Signed Date of Exam:04/28/22 CT CHEST WO PROCEDURE: CT chest without contrast. TECHNIQUE: Multiple contiguous axial images were obtained through the chest without the use of intravenous contrast. Auto Exposure Controls were utilized during the CT exam to meet ALARA standards for radiation dose reduction. INDICATION: Right shoulder pain. Cancer history. CORRELATION is made with shoulder radiographs from earlier in the same day. FINDINGS: There are some ill-defined airspace opacities present within the right upper lobe that may reflect a small region of pneumonia. There is a mass within the right lower lobe that measures 2.7 x 2.3 cm in size. This is suspect for a primary lung cancer. There is no pleural fluid. There is elevation of the left hemidiaphragm. There are no findings of edema. There are scattered benign calcifications within the left lung. There appears to be a pathologically enlarged subcarinal lymph node which is likely metastatic. This measures 2.3 cm. There is no pericardial collection. There are coronary calcifications. There are no findings of an identifiable liver mass. There is no adrenal mass. There are nonobstructing stones within both of the kidneys. There is a marked thoracic kyphosis demonstrated. There is an acute-appearing burst type fracture demonstrated of L1. There is more chronic wedging of T10 and T11. There is a fracture of the right 3rd rib laterally. There is a fracture the right 5th rib laterally. There is a metastatic lesion replacing the right lateral 8th rib with an associated soft tissue mass. There is a large mass also demonstrated in the right axillary region that measures 4.1 cm. Smaller axillary nodules are also present. With regards to the patient's right shoulder, there is no definitive metastatic lesion at the AC joint. There appear to be several remote left posterior lateral rib fractures but no acute left rib fracture is evident. No convincing lytic lesion evident within the spine. IMPRESSION: 1. There is a large right lower lobe pulmonary mass compatible with neoplasm which may be metastasis or primary lung cancer. 2. There is a presumed metastatic subcarinal lymph node. 3. There is a large presumed metastatic mass within the right axilla as well as smaller axillary nodes that are also likely metastatic. 4. There is metastatic replacement of the lateral right 8th rib with an associated soft tissue mass. 5. There is a presumed metastatic subcutaneous nodule posteriorly within the right flank just posterior to the right 11th rib. 6. No definitive metastatic lesion at the AC joint. 7. Patchy inflammatory opacities within the right upper lobe. 8. Burst type fracture of L1 without definitive associated metastatic lesion. There is chronic wedging of T10 and T11. There is a marked kyphosis. 9. Nonobstructing renal calculi. Dictated by: Dictated on workstation # [id number] Dict: 04/28/222128 Trans: 04/28/222140 [facility] [id number] Interpreted by: NEHEMIAH BROOKS MD Electronically signed by: NEHEMIAH BROOKS MD 04/28/222140 Departure Impression Primary Impression: Fracture of L1 vertebra Qualified Codes: S32.019A - Unspecified fracture of first lumbar vertebra, initial encounter for closed fracture Additional Impressions: Right shoulder pain Qualified Codes: M25.511 - Pain in right shoulder Small cell lung cancer Disposition: XFER SHT-TRM HOSP Condition: Stable Transfer Transfer Reason: Exceeds level of care Time Spoke to Accepting Phy: 22:52 Transfer Progress Notes Transfer accepted by Dr. Chowdhury (ER) and (Neurosurgery) at [facility]. Transfer Time: 01:20 Transfer Facility: [facility] Method of Transfer: EMS Departure-Patient Inst. Referrals: [facility] (PCP) Primary Care Physician CORWIN DAVIS (Family) Primary Care Physician Copy Copies To 1: SAMIRA DURAND MD Copies To 2: [facility]/KHANG POE MD Apr 28, 2022 20:07
--- NOTE | 2022-04-28 21:41 | Diagnostic Imaging Report ---
PROCEDURE: CT chest without contrast. TECHNIQUE: Multiple contiguous axial images were obtained through the chest without the use of intravenous contrast. Auto Exposure Controls were utilized during the CT exam to meet ALARA standards for radiation dose reduction. INDICATION: Right shoulder pain. Cancer history. CORRELATION is made with shoulder radiographs from earlier in the same day. FINDINGS: There are some ill-defined airspace opacities present within the right upper lobe that may reflect a small region of pneumonia. There is a mass within the right lower lobe that measures 2.7 x 2.3 cm in size. This is suspect for a primary lung cancer. There is no pleural fluid. There is elevation of the left hemidiaphragm. There are no findings of edema. There are scattered benign calcifications within the left lung. There appears to be a pathologically enlarged subcarinal lymph node which is likely metastatic. This measures 2.3 cm. There is no pericardial collection. There are coronary calcifications. There are no findings of an identifiable liver mass. There is no adrenal mass. There are nonobstructing stones within both of the kidneys. There is a marked thoracic kyphosis demonstrated. There is an acute-appearing burst type fracture demonstrated of L1. There is more chronic wedging of T10 and T11. There is a fracture of the right 3rd rib laterally. There is a fracture the right 5th rib laterally. There is a metastatic lesion replacing the right lateral 8th rib with an associated soft tissue mass. There is a large mass also demonstrated in the right axillary region that measures 4.1 cm. Smaller axillary nodules are also present. With regards to the patient's right shoulder, there is no definitive metastatic lesion at the AC joint. There appear to be several remote left posterior lateral rib fractures but no acute left rib fracture is evident. No convincing lytic lesion evident within the spine. IMPRESSION: 1. There is a large right lower lobe pulmonary mass compatible with neoplasm which may be metastasis or primary lung cancer. 2. There is a presumed metastatic subcarinal lymph node. 3. There is a large presumed metastatic mass within the right axilla as well as smaller axillary nodes that are also likely metastatic. 4. There is metastatic replacement of the lateral right 8th rib with an associated soft tissue mass. 5. There is a presumed metastatic subcutaneous nodule posteriorly within the right flank just posterior to the right 11th rib. 6. No definitive metastatic lesion at the AC joint. 7. Patchy inflammatory opacities within the right upper lobe. 8. Burst type fracture of L1 without definitive associated metastatic lesion. There is chronic wedging of T10 and T11. There is a marked kyphosis. 9. Nonobstructing renal calculi. Dictated by: Dictated on workstation # [id number]
[2022-04-28] MEDS ORDERED: fentaNYL INJ 100 MCG/2 ML AMP IVP ONE (23:15)
[2022-04-29 01:10] VITALS: BP 142/87
== END 2022-04-29 01:20 | disposition short-term general hospital (02) ==
LOC: EDUNIT# 19:07 → ER 19:09
DX: S32.011A Stable burst fracture of first lumbar vertebra, initial encounter for closed fracture (principal); M25.511 Pain in right shoulder; C34.90 Malignant neoplasm of unspecified part of unspecified bronchus or lung; Z88.5 Allergy status to narcotic agent; X58.XXXA Exposure to other specified factors, initial encounter
CPT/HCPCS: 71250; 73030